=== PATIENT | female | born 1970 | race Caucasian/White ===

== ENCOUNTER 2024-08-27 15:41 | Inpatient (IN) | payer MEDICAID, SELFPAY ==
[2024-08-27 15:43] VITALS: BMI 27.8
[2024-08-27 16:15] VITALS: BP 124/76; PULSE 122; RESP 20; TEMP 39; O2SAT 96
--- NOTE | 2024-08-27 16:16 | XR_ITS ---
Examination: CT abdomen and pelvis without contrast. Coronal 3-D reconstructions. Sagittal 2-D reconstructions. Date and time of exam:06/29/2024 1621 hrs. Indications: Abdominal pain and fever beginning 4 days ago, acute diverticulitis CT abdomen pelvis 02/28/2024 CTDI: vol (mGy): 12.1 DLP: (mGycm): 735 Technique: Axial images of the abdomen have been obtained, 3 mm slice thickness Intravenous contrast material has not been administered. Low dose protocols were performed. One or more of the following dose reduction techniques were used; automated exposure control, adjustment of the mA and/or KV according to patient size, use of iterative reconstruction technique. Findings: Hepatomegaly, 23 cm diffuse fatty infiltration throughout the liver, liver is lobular in contour Distended gallbladder with gallbladder wall thickening Spleen is not enlarged No pancreatic mass Mild ascites Subcentimeter pericaval periaortic lymph nodes Perinephric stranding, no hydronephrosis 3 mm lower pole left renal calculus, 10 mm lower pole right renal calculus Diffuse thickening of the colonic wall No pericecal inflammatory change Colonic diverticulosis Suspicious for mild acute sigmoid diverticulitis No pelvic mass Contracted urinary bladder Impression: Hepatomegaly, 23 cm with diffuse fatty infiltration throughout the liver Suspicious for cirrhosis Mild ascites Bilateral nonobstructing renal calculi Hepatic colopathy Suspicious for mild acute sigmoid diverticulitis, no peridiverticular abscess
--- NOTE | 2024-08-27 16:17 | PD.EDRME ---
Rapid Medical Screening Exam RME Arrival date/time: 08/27/24 15:41 54-year-old female with history of diverticulitis presents to the emergency department complains of lower abdominal pain and concern for diverticulitis flare Chief Complaint: Abdominal Pain Time Seen by Provider: 08/27/24 16:12
--- NOTE | 2024-08-27 16:23 | PC.NURSE ---
sepsis alert called
[2024-08-27] MEDS: HYDROcodone/APAP 5/325 TABLET 1 TAB PO (16:39)
[2024-08-27 16:49] LABS: Basophils % (Auto) 0 % (0-2.5); Eosinophils % (Auto) 0 % (0-10); Hematocrit 35.8 % (36.0-46.0); Hemoglobin 12.1 g/dL (12.0-16.0); Immature Granulocytes % (Auto) 1 % (0-0); Immature Granulocytes Auto 0.15 Thou/mm3 (0.00-0.00); Lymphocytes # (Auto) 0.4 Thou/mm3 (1.0-4.8); Lymphocytes % (Auto) 3 % (10-50); Mean Corpuscular HGB Conc 33.8 g/dl (31.0-37.0); Mean Corpuscular Hemoglobin 35.5 pg (25.0-35.0); Mean Corpuscular Volume 105 fL (80-100); Monocytes # (Auto) 0.5 Thou/mm3 (0.0-0.8); Monocytes % (Auto) 4 % (0-12); Neutrophils # (Auto) 11.7 Thou/mm3 (1.8-7.7); Neutrophils % (Auto) 92 % (37-80); Nucleated Red Blood Cell % 0 /100 WBC (0); Platelet Count 84 Thou/mm3 (140-440); RDW Standard Deviation 63.1 fL (36.4-46.3); Red Blood Count 3.41 Miln/mm3 (4.00-5.20); White Blood Count 12.8 Thou/mm3 (3.6-11.0)
[2024-08-27 17:09] LABS: Collection Type, Urine Clean Catch
[2024-08-27 17:15] LABS: Alanine Aminotransferase 33 U/L (10-49); Albumin, Serum 3.9 gm/dL (3.5-5.0); Albumin/Globulin Ratio 1.2 (1.2-2.2); Alkaline Phosphatase 244 U/L (46-116); Anion Gap 12 (7-16); Aspartate Amino Transferase 121 U/L (0-34); BUN/Creatinine Ratio 13 Ratio (12-20); Bilirubin,Total 3.6 mg/dL (0.3-1.2); Blood Urea Nitrogen 15 mg/dL (9-23); Calcium 8.8 mg/dL (8.3-10.6); Calcium (Corrected) 8.9 mg/dL (8.5-10.1); Carbon Dioxide 21.2 mMol/L (20.0-31.0); Chloride 104 mMol/L (98-107); Creatinine (Component) 1.2 mg/dL (0.6-1.3); Estimated Creatinine Clearance 65.1 mL/min (>60); Globulin 3.3 gm/dL (2.3-3.5); Glucose 103 mg/dL (74-106); Lipase 39 U/L (12-53); Osmolality,Calculated 274 (275-295); Potassium 3.2 mMol/L (3.4-5.1); Procalcitonin 16.72 ng/ml (0.0-0.49); Sodium 137 mMol/L (136-145); Total Protein 7.2 gm/dL (5.7-8.2); eGFR 53 See Note
[2024-08-27 17:24] LABS: Bacteria,Urine 1+; Bilirubin,Urine 2+ (Negative); Blood,Urine Trace (Negative); Color,Urine Drk-Orange (Lt Yel-Yel); Culture Indicated,Urine Contaminated; Glucose, Urine Trace (Negative); Hyaline Casts,Urine 12 /hpf (0-1); Ketones,Urine Negative (Negative); Leukocyte Esterase,Urine Negative (Negative); Nitrite,Urine Negative (Negative); Protein,Urine 3+ (Neg - Trace); RBC,Urine 2 /hpf (0-3); Specific Gravity,Urine 1.025 (1.001-1.035); Squamous Epithelial Cell,Urine 20 /hpf (0-5); Urobilinogen,Urine 12 mg/dL (0.0-1.0); WBC,Urine 22 /hpf (0-5)
[2024-08-27 17:25] LABS: Clarity,Urine Turbid (Clear/Hazy)
[2024-08-27 18:48] VITALS: BP 122/71; PULSE 114; RESP 15; TEMP 36.9; O2SAT 95
[2024-08-27] MEDS: PIPER/TAZO INJ 3.375 GM in SODIUM CHLORIDE 0.9% (Popper) 50 ML IV (19:16)
--- NOTE | 2024-08-27 19:19 | PD.EDABDPN ---
ED Abdominal Pain RME/HPI General Chief Complaint: Abdominal Pain Stated complaint: DIVERTICULITIS, URINATING BLOOD Time seen by provider: 08/27/24 16:12 Arrival date/time: 08/27/24 15:41 RME / HPI RME / HPI narrative: 54-year-old female patient with significant history of diverticulitis, came in for evaluation regarding lower abdominal pain. Onset of symptoms earlier today's lower abdominal pain described as dull ache, severity moderate. Patient is also concerned because today when she urinates she noticed some blood streak in the urine. Denies any fever denies any vomiting denies any other complaints no medications taken prior to arrival. Patient told me that she still drink alcohol but not on a regular basis. In the triage patient was noted to be tachycardic and having fever. Sepsis alert was initiated right away. Related Data Previous Rx's ?Medication ?Instructions ?Recorded fluticasone propionate 50 2 spray intranasal QDAY allergies 04/26/24 mcg/actuation nasal #16 grams spray,suspension methylprednisolone 4 mg tablets in See Rx Instructions PO PER PKG DIR 04/26/24 a dose pack (Medrol (Thierno)) rash #21 tabs amlodipine 5 mg tablet 5 mg PO QDAY #30 tabs 05/06/24 citalopram 20 mg tablet 20 mg PO QDAY #30 tabs 05/06/24 lisinopril 20 mg tablet 20 mg PO QDAY #30 tabs 05/06/24 Allergies Allergy/AdvReac Type Severity Reaction Status Date / Time aspirin Allergy Severe Rash Verified 08/27/24 15:42 Review of Systems Review of Systems Narrative Review of Systems: Review of system reviewed and within normal limits except mentioned in HPI ED Exam Narrative Physical exam: VITAL SIGNS: Reviewed. GENERAL APPEARANCE: Alert and interactive, follows commands, no acute distress, HEAD AND FACE: Non-traumatic. ENT: PERRL, pink conjunctivitis, eyelid no trauma, Mucous membrane moist. NECK: Supple, nontender, no nuchal rigidity. CHEST: No tenderness, no crepitus, no paradoxical movement, no retractions. LUNGS: Clear, well ventilated, symmetric, no rales, no wheezing, no ronchi, no stridor, good breath sounds bilaterally. HEART: Regular rate, regular rhythm, no murmur, no gallops. ABDOMEN: Soft, positive bowel sounds, nondistended, no guarding, lower abdominal tenderness no rebound, no masses, RECTAL: Deferred. GENITAL: Deferred. NEUROLOGICAL: Gross motor function intact sensory function intact, Appropriate for age. MUSCULOSKELETAL: low back nontender, full range of motion. EXTREMITIES: Nontender, full range of motion. SKIN: Color pink, dry, no rash, no lacerations, no abrasions, no contusions. LYMPHATICS: Deferred. Course Quality Measures none Orders Category Date Time Status MRI Screening NOW Care 08/27/24 22:[address] abdomen pelvis wo con Stat Exams 08/27/24 16:16 Completed MR MRCP Stat Exams 08/27/24 Ordered US gall bladder Stat Exams 08/27/24 20:50 Completed Blood Culture (Lab) Stat Lab 08/27/24 16:40 Received CBC Stat Lab 08/27/24 16:37 Completed Comprehensive Metabolic Panel Stat Lab 08/27/24 16:37 Completed Lactic Acid [Lactate (Lactic Acid)] Stat Lab 08/27/24 16:37 Completed Lipase Stat Lab 08/27/24 16:37 Completed Procalcitonin Stat Lab 08/27/24 16:37 Completed UA, C/S IF [Urinalysis, C/S if Indicated] Stat Lab 08/27/24 17:07 Completed HYDROcodone*/APAP 5/325 [Hannibal 5/325] Med 08/27/24 16:16 Discontinued 1 tab PO X1 ONE HYDROcodone/APAP 10/325 [[place]ann[place] 10/325] Med 08/27/24 23:18 Discontinued 1 tab PO X1 ONE Ketorolac Inj [Toradol Inj] Med 08/27/24 19:17 Discontinued 30 mg IVP X1 ONE Piper/Tazo Inj [Zosyn Inj] 3.375 gm Med 08/27/24 22:50 Pending SODIUM CHLORIDE 0.9% (Popper) [Ns 0.9% (P)] 50 ml IV Q8HR Piper/Tazo Inj [Zosyn Inj] 3.375 gm Med 08/27/24 19:11 Discontinued SODIUM CHLORIDE 0.9% (Popper) [Ns 0.9% (P)] 50 ml IV X1 Piper/Tazo Inj [Zosyn Inj] 3.375 gm Med 08/28/24 04:00 Active SODIUM CHLORIDE 0.9% (Popper) [Ns 0.9% (P)] 50 ml IV X1 Potassium Chloride [K-Dur] Med 08/27/24 22:50 Discontinued 40 meq PO X1 ONE Sodium Chloride 0.9% 1000 ml [Ns] 1,000 ml Med 08/27/24 22:51 Active IV 125 mls/hr Sodium Chloride 0.9% 1000 ml [Ns] 1,000 ml Med 08/27/24 19:18 Discontinued IV 999 mls/hr Vital Signs Vital signs: Vital Signs Temperature 102.2 F H 08/27/24 16:15 Pulse Rate 122 H 08/27/24 16:15 Respiratory Rate 20 08/27/24 16:15 Blood Pressure 124/76 08/27/24 16:15 Pulse Oximetry (%) 96 08/27/24 16:15 Oxygen Delivery Method Room Air 08/27/24 16:15 Abdominal Pain MDM MDM Narrative MDM Narrative:: 54-year-old female patient with significant history of diverticulitis, came in for evaluation regarding lower abdominal pain. Onset of symptoms earlier today's lower abdominal pain described as dull ache, severity moderate. Patient is also concerned because today when she urinates she noticed some blood streak in the urine. Denies any fever denies any vomiting denies any other complaints no medications taken prior to arrival. In the triage patient was noted to be tachycardic and having fever. Sepsis alert was initiated right away. Patient's total bili today was noted to be 3.6, leukocytosis of 12.8 potassium 3.2 AST of 121, alkaline phos of 244. Pro-Zeke was also noted to be 16.7. Urinalysis no UTI. CT scan of the abdomen and pelvis showed Hepatomegaly, 23 cm diffuse fatty infiltration throughout the liver, liver is lobular in contour Distended gallbladder with gallbladder wall thickening Spleen is not enlarged No pancreatic mass Mild ascites Subcentimeter pericaval periaortic lymph nodes Perinephric stranding, no hydronephrosis 3 mm lower pole left renal calculus, 10 mm lower pole right renal calculus Diffuse thickening of the colonic wall No pericecal inflammatory change Colonic diverticulosis Suspicious for mild acute sigmoid diverticulitis No pelvic mass Contracted urinary bladder Ultrasound of the gallbladder showed Negative for cholelithiasis, negative for cholecystitis Prominent pancreatic head, clinical correlation advised, pancreas does not appear prominent on the CT examination abdomen today Moderate hepatomegaly fatty infiltration Patient received IV fluids for hydration, [place], Toradol, IV Zosyn, 3.5 g every 8 hours. Patient is pending MRCP in the morning. Care transferred to Dr Xie At 11:20 PM. For final disposition Patient data External records reviewed:: None Clinical information provided by:: patient Social determinants that could affect healthcare access:: alcohol use Patient has the following chronic illnesses:: None How is presenting disease/condition affected by chronic disease/condition?: exacerbated by Evaluation data The following diagnostics were reviewed and interpreted by me:: lab results, radiology exam(s) and EKG tracing(s) Lab and/or radiology exams considered but not ordered:: None Interpretation Summary: See results in MDM Medications / Prescriptions Medications or Prescriptions considered but not ordered:: None Medication administrations:: Medication Administration History Piperacillin Sod/Tazobactam (Sod 3.375 gm/ Sodium Chloride) 50 mls @ 100 mls/hr IV Q8HR BRIANA Stop: 09/03/24 22:49 Sodium Chloride (Ns) 1,000 mls @ 125 mls/hr IV .Q8H ONE Stop: 08/28/24 06:50 Last Admin: 08/27/24 23:16 Dose: 125 mls/hr Documented By: TYRESE Piperacillin Sod/Tazobactam (Sod 3.375 gm/ Sodium Chloride) 50 mls @ 12.5 mls/hr IV X1 ONE Stop: 08/28/24 07:59 Discontinued Medications Hydrocodone Bitart/Acetaminophen (Hydrocodone/Apap 5/325 Tablet) 1 tab PO X1 ONE Stop: 08/27/24 16:17 Last Admin: 08/27/24 16:39 Dose: 1 tab Documented By: Hydrocodone Bitart/Acetaminophen (Hydrocodone/Apap 10/325 Tab) 1 tab PO X1 ONE Stop: 08/27/24 23:19 Piperacillin Sod/Tazobactam (Sod 3.375 gm/ Sodium Chloride) 50 mls @ 100 mls/hr IV X1 ONE Stop: 08/27/24 19:40 Last Infusion: 08/27/24 20:06 Dose: Infused Documented By: Admin: 08/27/24 19:16 Dose: 100 mls/hr Documented By: TYRESE Sodium Chloride (Ns) 1,000 mls @ 999 mls/hr IV .Q1H1M ONE Stop: 08/27/24 20:18 Last Infusion: 08/27/24 20:58 Dose: Infused Documented By: Admin: 08/27/24 19:21 Dose: 999 mls/hr Documented By: TYRESE Ketorolac Tromethamine (Ketorolac Inj 30 Mg/Ml Vial) 30 mg IVP X1 ONE Stop: 08/27/24 19:18 Last Admin: 08/27/24 19:21 Dose: 30 mg Documented By: TYRESE Potassium Chloride (Potassium Chloride 20 Meq Tabcr) 40 meq PO X1 ONE Stop: 08/27/24 22:51 Last Admin: 08/27/24 23:16 Dose: 40 meq Documented By: TYRESE IV fluids, IV Zosyn, potassium replacement, Toradol, Hannibal Consultations Consultation(s) initiated? (list below): No Diagnosis Differential diagnosis abdominal pain: abdominal pain, pancreatitis and other (Acute diverticulitis,, fever, elevated total bili) Most likely diagnosis given after review of the tests above:: Acute diverticulitis, fever elevated total bili, Admission Indicated Admission indicated?: not indicated Admission Request Was there a request for admission?: No Admission Attestation Admission request attestation: Pending final disposition Disposition Plan Disposition Plan: other (specify) Discharge Plan Prescriptions/Referrals Prescriptions/Med Rec: No Action methylprednisolone [Medrol (Thierno)] 4 mg tablets,dose pack See Rx Instructions PO PER PKG DIR MDD 24 mg Qty: 21 0RF Rx Instructions: PO PER PKG DIR for 6 days fluticasone propionate 50 mcg/actuation spray,suspension 2 spray intranasal QDAY Qty: 16 1RF Rx Instructions: administer 2 sprays into each nostril lisinopril 20 mg tablet 20 mg PO QDAY MDD 20 mg Qty: 30 2RF amlodipine 5 mg tablet 5 mg PO QDAY MDD 5 mg Qty: 30 2RF citalopram 20 mg tablet 20 mg PO QDAY MDD 20 mg Qty: 30 2RF Referrals: No Primary/Family,Physician [Primary Care Provider] - In 1 week Problem List Clinical Impression: Abdominal pain, Acute diverticulitis, Total bilirubin, elevated, Fever Patient/Caregiver Discharge Instructions Print Language: Romansh
[2024-08-27] MEDS: SODIUM CHLORIDE 0.9% 1000 ML 1,000 ML 999 ML IV (19:21)
[2024-08-27] MEDS: KETOROLAC INJ 30 MG/ML VIAL IVP (19:21)
--- NOTE | 2024-08-27 20:50 | XR_ITS ---
Examination: Abdomen sonogram, Limited Date and time of exam: September 06, 2024 10:30 PM Indications: Right upper abdominal pain beginning 3 days ago Technique: Real-time buenrostro scale transabdominal sonographic images of the upper abdomen obtained. Findings: Negative for gallstones Gallbladder wall 0.2 cm Common bile duct 0.5 cm Pancreatic head 3.8 cm Liver 20.9 cm no focal liver lesions Normal hepatopedal portal venous flow Patent IVC Impression: Negative for cholelithiasis, negative for cholecystitis Prominent pancreatic head, clinical correlation advised, pancreas does not appear prominent on the CT examination abdomen today Moderate hepatomegaly fatty infiltration
[2024-08-27 22:06] VITALS: BP 117/65; PULSE 91; RESP 18; O2SAT 97
[2024-08-27 22:11] VITALS: BP 117/65; PULSE 91; RESP 18; TEMP 36.8; O2SAT 95
[2024-08-27] MEDS: SODIUM CHLORIDE 0.9% 1000 ML 1,000 ML 125 ML IV (23:16)
[2024-08-27] MEDS: POTASSIUM CHLORIDE 20 mEq TABCR 40 MEQ PO (23:16)
--- NOTE | 2024-08-27 23:16 | PD.EDADDENDU ---
Emergency Room Addendum <Trupti Johnson - Last Filed: 08/27/24 23:17> Addendum Narrative: I took over the care from Dejuan Martines NP at 11 PM on 08/27/2024, see his notes for complete H&P and ED course. <Adrien Xie MD - Last Filed: 08/28/24 04:38> Addendum Narrative: I took over the care from Dejuan Martines [employer]INE[employer] at 11 PM on 08/27/2024, see his notes for complete H&P and ED course. Patient presented with several days of abdominal pain and vomiting and decreased oral intake, no alcohol for a couple of weeks. I reviewed all diagnostic test results. Diagnoses include: Sepsis, Abdominal Pain, Diverticulitis, Elevated Bilirubin, Fever, UTI, Hypokalemia, Distended GB with wall thickening, Hepatomegaly, Alcohol Use Treatment here included: IV fluid, KCl, Zosyn, Toradol, and [place]. Some improvement noted. At 6 AM on 08/28/24, the care of the patient was transferred to Dr. SALDIVAR with MRCP pending. Ativan 2 mg IV ordered before MRCP due to severe claustrophobia with MRI in the past. Adrien Xie MD
[2024-08-27] MEDS: HYDROcodone/APAP 10/325 TAB PO (23:20)
[2024-08-28] VITALS (17 sets, daily range): BP systolic 91–146; BP diastolic 53–82; PULSE 72–102; RESP 12–94; TEMP 36–37.3; O2SAT 93–98; BMI 28.5
--- NOTE | 2024-08-28 | XR_ITS ---
MRI abdomen, without contrast. MRCP Date and time of exam: August 23, 2024 0744 hrs. Indications: Elevated total bilirubin today, prominent pancreatic head on ultrasound gallbladder study today nausea vomiting 4 days Technique: Multiple axial and coronal images of the abdomen have been obtained with the Siemens 1.5T MRI scanner. Images obtained included T1 weighted transverse images, T2-weighted transverse images, T2-weighted transverse images fat-suppressed, T2 weighted haste fat suppressed transverse images, T1 weighted images, in and out of phase images, T2-weighted coronal images, breath hold, T2 weighted haze coronal images as well as T2 weighted coronal thick slab images, MRCP. Findings: Cirrhosis, liver irregular liver contour, sagittal dimension of the liver 22 cm No gallstones Gallbladder wall does not appear thickened Common hepatic duct common bile duct 3 mm no stones No pancreatic edema or pancreatic mass Splenomegaly 15.5 cm No hydronephrosis Perinephric stranding Aorta normal size Impression: Cirrhosis, hepatomegaly Negative for cholelithiasis, negative for cholecystitis Normal common hepatic common bile duct No pancreatic edema or pancreatic mass Significant splenomegaly
[2024-08-28] MEDS: PIPER/TAZO INJ 3.375 GM in SODIUM CHLORIDE 0.9% (Popper) 50 ML IV ×3 (03:59→21:49)
[2024-08-28 04:15] LABS: Bilirubin,Direct 1.2 mg/dL (0.0-0.3); Magnesium 1.4 mg/dL (1.6-2.6)
--- NOTE | 2024-08-28 06:06 | PD.EDADDENDU ---
Emergency Room Addendum Addendum Narrative: 0600: Care assumed from Dr. Xei, the previous shift emergency physician. Past medical, surgical, social and family history reviewed. Vitals and home medications reviewed. I will assume the care of the patient at this time, pending MRCP and final disposition. Please refer to the emergency department record for history and examination from initial visit.? 54 year old female with past medical history significant for diverticulitis presents to the Emergency Department with complaint of lower abdominal pain. Associated symptoms include fever. Physical exam by me shows patient under no acute distress at this time. 1355: Discussed test HPI, PMHx, lab, radiology results and/or management with hospitalist. Will admit for further evaluation and management. Accepts patient for admission. Diagnoses: sepsis, diverticulitis, acute pylonephritis, hyperbilirubinemia. RADIOLOGY Procedure(s): MR MRCP Accession Number(s): [id number] cc: Dejuan MartinesP; Manan Quevedo MD; NO PRIMARY/FAMILY,PHYSICIAN~ MRI abdomen, without contrast. MRCP Date and time of exam: August 23, 2024 0744 hrs. Indications: Elevated total bilirubin today, prominent pancreatic head on ultrasound gallbladder study today nausea vomiting 4 days Technique: Multiple axial and coronal images of the abdomen have been obtained with the Siemens 1.5T MRI scanner. Images obtained included T1 weighted transverse images, T2-weighted transverse images, T2-weighted transverse images fat-suppressed, T2 weighted haste fat suppressed transverse images, T1 weighted images, in and out of phase images, T2-weighted coronal images, breath hold, T2 weighted haze coronal images as well as T2 weighted coronal thick slab images, MRCP. Findings: Cirrhosis, liver irregular liver contour, sagittal dimension of the liver 22 cm No gallstones Gallbladder wall does not appear thickened Common hepatic duct common bile duct 3 mm no stones No pancreatic edema or pancreatic mass Splenomegaly 15.5 cm No hydronephrosis Perinephric stranding Aorta normal size Impression: Cirrhosis, hepatomegaly Negative for cholelithiasis, negative for cholecystitis Normal common hepatic common bile duct No pancreatic edema or pancreatic mass Significant splenomegaly Dictated By: Manan Quevedo MD
[2024-08-28] MEDS: LORazepam 2 MG/ML VIAL IVP (07:20)
[2024-08-28] MEDS: RINGERS LACTATED 1000 ML 1,000 ML IV (07:26)
--- NOTE | 2024-08-28 15:36 | PD.RESHP ---
Documentation for date of: 08/28/24 HPI History of Present Illness Chief complaint: Abdominal pain, nausea/vomiting and diarrhea History of present illness: This patient is a 54-year-old female with past medical history of recurrent diverticulitis, had drainage for abscess a year ago in February 2024 and [facility], history of hypertension, liver cirrhosis due to alcohol use and anxiety presented to the ED on 08/28/2024 with chief complaint of lower quadrant abdominal pain radiating to the back and had multiple episodes of loose watery stools reported to be more than 30 associated with nausea and vomiting x 3-4 times from last 3 days. Patient reported that she follows up in our formerly [facility] with one of her resident doctor. She did endorse fever spikes from last 3 days. Of note, patient reported that she had productive cough from last 1 week. No history of recent travel or sick contacts at home. She did not receive flu vaccine in the past. She did had complained of mild frequency however did not had complaint of burning sensation or dysuria. Patient has not been able to eat because of nausea and diarrhea. Patient reported that she has been trying to quit drinking alcohol from last 3-1/2 weeks ago. Endorsed generalized weakness and fatigability. She was concerned for her high blood pressure as she is not currently taking her medication due to insurance problem. In the ED, patient was mildly hypertensive, tachycardic and febrile with temp of 102.2. Patient was saturating well on room air. She met 3 out of 4 SIRS criteria with tachycardia, fever and leukocytosis with possible source of infection diverticulitis and possible pyelonephritis. Labs showed leukocytosis, macrocytic anemia, thrombocytopenia, hypokalemia, mild CHAD with creatinine 1.2 baseline 0.6 from 03/01/2024 Lactic acid was normal. Hypomagnesemia magnesium 1.4. Total bilirubin 2.6, direct bilirubin 1.2, AST 121 and AST 33. on admission. Today labs revealed white count 5.7, hemoglobin 11.1, MCV 110, platelet count 67. INR 1.5. Electrolytes unremarkable. Kidney functions mildly improved with creatinine 1.0. Liver enzymes improved T. bili 1.3 and AST 93 with ALT 29, ALP 177. Albumin 3.5. Elevated procalcitonin 16.72.Urinalysis was turbid with bilirubin 2+, WBC 22, squamous cells, bacteria and hyaline cast. CT abdomen was significant for hepatomegaly 23 cm with diffuse fatty infiltration for the liver, cirrhosis, mild ascites, bilateral nonobstructing renal calculi 3 mm lower pole left renal calculus and 10 mm lower pole right renal calculus, diffuse thickening of colonic wall, acute sigmoid diverticulitis no peridiverticulitis abscess seen and mild ascites. Distended gallbladder with gallbladder wall thickening. Gallbladder ultrasound showed prominent pancreatic head with moderate hepatomegaly fatty infiltration. MRCP was only significant for cirrhosis and hepatomegaly negative for cholelithiasis and cholecystitis with normal common hepatic duct and CBD. PMH: As above PSH: Tubal ligation Allergies: Aspirin causes rash and difficulty breathing SH: Secondhand smoking, quit drinking alcohol recently 3 weeks ago. Used to drink 4-5 beers every day. No history of illicit drug use Home medications: Lisinopril 20 mg once daily, amlodipine 5 mg once daily, citalopram 20 mg at bedtime patient was not taking her medication due to insurance problem Patient is admitted for further workup and management of sepsis likely due to acute sigmoid diverticulitis and pyelonephritis. Review of Systems Review of Systems Systems Reviewed: All systems reviewed, normal except as documented Past Medical History Social History SMOKING STATUS: Former smoker SUBSTANCE USE: marijuana ALCOHOL: Current Exam Vital Signs Temp Pulse Resp BP Pulse Ox O2 Del Method 99.1 F 102 H 25 H 146/82 H 96 Room Air 08/28/24 15:19 08/28/24 15:19 08/28/24 15:19 08/28/24 15:19 08/28/24 15:19 08/28/24 15:19 Narrative Exam GENERAL APPEARANCE: Patient is AOx3, ill-appearing female in mild distress due to abdominal pain. Saturating well on room air HEENT: NC, AT. Dry mucous membrane. EOMI, clear conjunctiva, oropharynx clear. NECK: Supple without lymphadenopathy. No stiffness or restricted ROM. HEART: Sinus tachycardia with regular rhythm, normal S1/S2, no m/r/g LUNGS: CTAB, moving air well. No crackles or wheezes are heard. ABDOMEN: Soft, epigastric tenderness with positive punch test, nondistended with good bowel sounds heard. BACK: No CVAT, no obvious deformity. EXTREMITIES: Without cyanosis, clubbing or edema. NEUROLOGICAL: Grossly nonfocal. Alert and oriented, moving all 4 extremities. CN not formally tested but appear grossly intact. Observed to ambulate with normal gait. Skin: Warm and dry without any rash. Psych: Mildly anxious however cooperative Results: Labs 08/28/24 15:59 08/28/24 15:59 Labs: Short CBC 08/27/24 Range/Units 16:37 WBC 12.8 H (3.6-11.0) Thou/mm3 Hgb 12.1 (12.0-16.0) g/dL Hct 35.8 L (36.0-46.0) % Plt Count 84 L (140-440) Thou/mm3 BMP 08/27/24 16:37 Sodium 137 Potassium 3.2 L Chloride 104 Carbon Dioxide 21.2 BUN 15 Creatinine 1.2 Glucose 103 Calcium 8.8 Liver Function 08/27/24 08/28/24 Range/Units 16:37 03:24 Total Bilirubin 3.6 H (0.3-1.2) mg/dL Direct Bilirubin 1.2 H (0.0-0.3) mg/dL AST 121 H (0-34) U/L ALT 33 (10-49) U/L Alkaline Phosphatase 244 H (46-116) U/L Albumin 3.9 (3.5-5.0) gm/dL Urine 08/27/24 Range/Units 17:07 Urine Color Drk-[place] A (Lt Yel-Yel) Urine Clarity Turbid A (Clear/Hazy) Urine pH 6.0 (5.0-7.0) Ur Specific [place] 1.025 (1.001-1.035) Urine Protein 3+ A (Neg - Trace) Urine Glucose (UA) Trace (Negative) Quality Measures Quality Measures VTE prophylaxis (SCDs) Medications Home Medications and Allergies Allergies Allergy/AdvReac Type Severity Reaction Status Date / Time aspirin Allergy Severe Rash Verified 08/27/24 15:42 Visit Medications Acetaminophen (Acetaminophen 325 Mg Tablet) 650 mg PO Q6H PRN PRN Reason: PAIN SCALE 1-3 (mild Stop: 09/27/24 14:52 Citalopram Hydrobromide (Citalopram 20 Mg Tablet) 20 mg PO QDAY BRIANA Stop: 09/28/24 08:59 Folic Acid (Folic Acid 1 Mg Tablet) 1 mg PO QDAY BRIANA Stop: 09/28/24 08:59 Hydromorphone HCl (Hydromorphone Inj 2 Mg/Ml Vial) 0.5 mg IVP Q4H PRN PRN Reason: PAIN Stop: 09/02/24 14:52 Piperacillin Sod/Tazobactam (Sod 3.375 gm/ Sodium Chloride) 50 mls @ 12.5 mls/hr IV Q8HR [facility]; Protocol Stop: 09/03/24 22:49 Last Admin: 08/28/24 14:58 Dose: 12.5 mls/hr Lactated Ringer's (Lactated Ringers) 1,000 mls @ 75 mls/hr IV .[id number] [facility] Stop: 09/27/24 14:59 Magnesium Sulfate (Magnesium Sulfate Ivpb) 4 gm in 50 mls @ 12.5 mls/hr IV X1 ONE Stop: 08/28/24 18:56 Magnesium Sulfate/Dextrose (Magnesium Sulfate Ivpb) 1 gm in 100 mls @ 100 mls/hr IV X1 ONE Stop: 08/28/24 19:59 Ondansetron HCl (Ondansetron Inj 2 Mg/Ml Inj 2 Ml) 4 mg IV Q6H PRN; Protocol PRN Reason: NAUSEA OR VOMITING Stop: 09/27/24 14:52 Oxycodone/Acetaminophen (Oxycodone/Apap 5/325 Tablet) 1 tab PO Q6H PRN PRN Reason: PAIN SCALE 4-6 (Moderate Stop: 09/02/24 14:52 Pantoprazole Sodium (Pantoprazole Inj 40 Mg Vial) 40 mg IVP QDAY [facility] Stop: 09/27/24 14:59 Sennosides (Senna Tablet) 1 tab PO QDAY PRN; Protocol PRN Reason: constipation Stop: 09/27/24 14:52 Thiamine HCl (Thiamine 100 Mg Tablet) 100 mg PO QDAY [facility] Stop: 09/28/24 08:59 Discontinued Medications Hydrocodone Bitart/Acetaminophen (Hydrocodone/Apap 5/325 Tablet) 1 tab PO X1 ONE Stop: 08/27/24 16:17 Last Admin: 08/27/24 16:39 Dose: 1 tab Hydrocodone Bitart/Acetaminophen (Hydrocodone/Apap 10/325 Tab) 1 tab PO X1 ONE Stop: 08/27/24 23:19 Last Admin: 08/27/24 23:20 Dose: 1 tab Amoxicillin/Clavulanate Potassium (Amoxicillin/Pot Clav 875 Tablet) 1 tab PO X1 ONE Stop: 08/28/24 03:01 Last Admin: 08/28/24 07:34 Dose: Not Given Bacitracin (Bacitracin Oint 1 Gm Packet) 1 gm TOP X1 ONE Stop: 08/28/24 03:01 Last Admin: 08/28/24 07:35 Dose: Not Given Diphtheria/Tetanus/Acell Pertussis (Diphth,Pertuss(Acell),Tet Vac 0.5 Ml Syr- Adult) 0.5 ml IMi .ONCE ONE Stop: 08/28/24 03:01 Last Admin: 08/28/24 07:36 Dose: Not Given Folic Acid (Folic Acid Inj 1 Mg/0.2 Ml) 1 mg IVP X1 ONE Stop: 08/28/24 15:12 Piperacillin Sod/Tazobactam (Sod 3.375 gm/ Sodium Chloride) 50 mls @ 100 mls/hr IV X1 ONE Stop: 08/27/24 19:40 Last Infusion: 08/27/24 20:06 Dose: Infused Sodium Chloride (Ns) 1,000 mls @ 999 mls/hr IV .Q1H1M ONE Stop: 08/27/24 20:18 Last Infusion: 08/27/24 20:58 Dose: Infused Sodium Chloride (Ns) 1,000 mls @ 125 mls/hr IV .Q8H ONE Stop: 08/28/24 06:50 Last Admin: 08/27/24 23:16 Dose: 125 mls/hr Piperacillin Sod/Tazobactam (Sod 3.375 gm/ Sodium Chloride) 50 mls @ 12.5 mls/hr IV X1 ONE Stop: 08/28/24 07:59 Last Infusion: 08/28/24 09:35 Dose: Infused Lactated Ringer's (Lactated Ringers) 1,000 mls @ 1,000 mls/hr IV .Q1H ONE Stop: 08/28/24 04:13 Last Infusion: 08/28/24 09:48 Dose: Infused Potassium Chloride (Kcl Ivpb) 10 meq in 100 mls @ 100 mls/hr IV Q1H BRIANA Stop: 08/28/24 16:56 Ibuprofen (Ibuprofen Tab 400 Mg Tablet) 800 mg PO X1 ONE Stop: 08/28/24 03:01 Last Admin: 08/28/24 07:35 Dose: Not Given Ketorolac Tromethamine (Ketorolac Inj 30 Mg/Ml Vial) 30 mg IVP X1 ONE Stop: 08/27/24 19:18 Last Admin: 08/27/24 19:21 Dose: 30 mg Lorazepam (Lorazepam 2 Mg/Ml Vial) 2 mg IVP X1 ONE Stop: 08/28/24 04:09 Last Admin: 08/28/24 07:20 Dose: 2 mg Potassium Chloride (Potassium Chloride 20 Meq Tabcr) 40 meq PO X1 ONE Stop: 08/27/24 22:51 Last Admin: 08/27/24 23:16 Dose: 40 meq Thiamine HCl (Thiamine Inj 100 Mg/Ml Vial 2 Ml) 100 mg IVP X1 ONE Stop: 08/28/24 15:12 Assessment & Plan Plan This patient is a 54-year-old female with past medical history of recurrent diverticulitis, had drainage for abscess a year ago in February 2024 and [facility], history of hypertension, liver cirrhosis due to alcohol use and anxiety presented to the ED on 08/28/2024 with chief complaint of lower quadrant abdominal pain radiating to the back and had multiple episodes of loose watery stools reported to be more than 30 associated with nausea and vomiting x 3-4 times from last 3 days. Patient is admitted for further workup and management of sepsis likely due to acute sigmoid diverticulitis and pyelonephritis. #Sepsis likely secondary to acute sigmoid diverticulitis and ?pyelonephritis/UTI with hematuria #Nephrolithiasis, nonobstructing renal calculus #Leukocytosis ? Patient presented with abdominal discomfort radiating to the back with nausea vomiting and diarrhea from last 3 days. ? In the ED, patient was mildly hypertensive, tachycardic and febrile with temp of 102.2. Patient was saturating well on room air. ? She met 3 out of 4 SIRS criteria with tachycardia, fever and leukocytosis with possible source of infection diverticulitis and possible pyelonephritis. Lactic acid was unremarkable ?On admission, Labs showed leukocytosis, macrocytic anemia, thrombocytopenia, hypokalemia, mild CHAD with creatinine 1.2 baseline 0.6 from 03/01/2024. ? Procalcitonin was elevated. ? In the ED, patient received 2 L bolus of fluids, Zosyn x 1 and ibuprofen and Toradol for pain. ?Urinalysis was turbid with bilirubin 2+, WBC 22, squamous cells, bacteria and hyaline cast. ?CT abdomen was significant for hepatomegaly 23 cm with diffuse fatty infiltration for the liver, cirrhosis, mild ascites, bilateral nonobstructing renal calculi 3 mm lower pole left renal calculus and 10 mm lower pole right renal calculus, diffuse thickening of colonic wall, acute sigmoid diverticulitis no peridiverticulitis abscess seen and mild ascites. Distended gallbladder with gallbladder wall thickening. Gallbladder ultrasound showed prominent pancreatic head with moderate hepatomegaly fatty infiltration. ?MRCP was only significant for cirrhosis and hepatomegaly negative for cholelithiasis and cholecystitis with normal common hepatic duct and CBD. ?Patient was given 1 L bolus in the ED Plan: ? Started IV Zosyn 3.375 g Q8 hourly ? IV fluids at 75 cc/h and 1 L bolus ?1 ? Keep patient n.p.o. ? Follow-up on stool studies, blood cultures and urine culture ? Ordered C. difficile and contact precautions ? Daily labs ? Pain control as needed with Tylenol, oxycodone and Dilaudid ? Monitor electrolytes and replete as necessary ? Blood sugar checks Q6 hourly given patient is n.p.o. ? Ordered chest x-ray to evaluate for productive cough ? Follow-up with hepatitis panel #?Decomp Liver cirrhosis #Ascites #Alcohol use disorder ?Total bilirubin 2.6, direct bilirubin 1.2, AST 121 and AST 33. Elevated procalcitonin 16.72. ? CT abdomen was significant for hepatomegaly with diffuse fatty infiltration of liver, cirrhosis, mild ascites. MRCP was negative for cholelithiasis and cholecystitis. ?MELD NA 16 points 6% mortality ?MDF score 22, good prognosis ?Child-Jim score 9 points class B ? Albumin 3.5 Plan: ? Alcohol cessation completely ? Monitoring LFTs ? Treating underlying infection ? Monitor for signs of bleeding or bruising ? Outpatient follow-up ?Thiamine and folic acid #Hypomagnesemia #Hypokalemia ?Magnesium was 1.4 and potassium was 3.1 on admission Plan ? Electrolytes were repleted ? Keep mag above 2 and potassium above 4 #Coagulopathy #Elevated transaminases #Elevated T. bili #Thrombocytopenia ?Total bilirubin 2.6, direct bilirubin 1.2, AST 121 and AST 33. Elevated procalcitonin 16.72. ?INR 1.5 Plan: ? Monitor liver enzymes and INR ? Patient was counseled to stop drinking alcohol completely ? avoid hepatotoxic agents ? Monitor for signs of bleeding and bruising #Macrocytic anemia ? Likely related to alcohol use ?MCV was elevated with low hemoglobin Plan: ? PRBC if hemoglobin drops below 7 ? Follow-up with CBC ? Thiamine and folic acid ? Follow-up with B12, iron panel and ferritin #Prominent pancreatic head per CT imaging ? Lipase was negative Plan: ? Follow-up outpatient #Mild CHAD ? Likely prerenal -related to dehydration and sepsis ? Mildly elevated creatinine 1.2 baseline 0.9 from 2023 Plan: ?IV fluids ? Avoid nephrotoxic agents ? Renally dose medications ? Strict SAYRA's ? Follow-up with renal panel #History of hypertension ? Currently blood pressure is stable Plan ? Monitoring blood pressure and holding BP meds due to sepsis and mild CHAD ? Patient takes lisinopril 20 mg and amlodipine 5 mg ? Hold lisinopril given CHAD ? Monitor blood pressure Health maintenance Diet: N.p.o. DVT prophylaxis: SCDs GI prophylaxis: Protonix 40 mg IV daily CODE STATUS: Full code Disposition: Patient is admitted for further workup and management of sepsis likely secondary to acute sigmoid diverticulitis and pyelonephritis. -- Patient was seen and discussed with attending physician, Dr. Mainor Salcido MD, PGY 2 Attending Provider Attestation/Addendum I have discussed and was present for the essential components of the history, physical examination, diagnosis, and treatment plan with the resident. I agree with the patient's care as documented by the resident and amended herein by me. Henrique Hayward, DO. Patient seen and evaluated in the ED. 54-year-old female with a significant past medical history of multiple episodes of diverticulitis with abscess drainage, diverticulosis, anxiety, hypertension, anemia and fatty liver, presented to the ED with complaints of left lower quadrant abdominal pain, watery stools, 3-4 episodes of vomiting over the last several days prior to admission. Patient also endorsed subjective fever. In the ED, BP 146/82 mmHg, patient mildly tachycardic, mildly tachypneic, febrile with a Tmax of 102.2, patient saturating 96% on room air. Significant labs include a WBC of 12.8, hemoglobin 11.1, MCV 110, platelet count of 67, potassium 3.2, mag 1.4, procalcitonin was elevated 16.72, U tox positive for THC, liver enzymes were elevated with an AST 121, ALT 33, ALP 244 and a T. bili of 3.6. INR was 1.5. UA was positive. CT abdomen and pelvis was performed demonstrating Hepatomegaly, liver cirrhosis, mild ascites, bilateral nonobstructing renal calculi, hepatic colopathy and acute sigmoid diverticulitis however no peridiverticular abscess was noted. An MRCP was also performed out of concern for obstruction which also demonstrated cirrhosis, hepatomegaly, was negative for any cholecystitis or cholelithiasis, normal CBD, no pancreatic edema or pancreatic mass and significant splenomegaly was also noted. At this time patient admitted to telemetry floor for sepsis secondary to diverticulitis and possible UTI. Patient will be started on Zosyn, hepatitis panel ordered, IVF will be started for the next day or so. MELD score calculated 16, Madrey score 22. Will replete potassium as needed, monitor the patient's hyperbilirubinemia and anemia, ascites is minimal hence does not need a paracentesis at this time, will also follow-up with blood and urine cultures and monitor closely. Although this document has been carefully reviewed, there may still be some phonetic and other typographical errors. These errors are purely grammatical due to imperfections in the software program and should not be construed in any way to compromise the substance of the patient's medical care during this visit.
[2024-08-28] MEDS: HYDROmorphone INJ 2 MG/ML VIAL 0.5 MG IVP ×2 (16:00→20:03)
[2024-08-28] MEDS: FOLIC ACID INJ 1 MG/0.2 ML IVP (16:02)
--- NOTE | 2024-08-28 16:03 | XR_ITS ---
Examination: AP chest single view Technique one AP portable upright chest single view Exam date and time: August 28, 2024 1535 hrs. Comparison 02/28/2024 Indications: Coughing today. Findings: Normal heart size Lungs are clear. The osseous structures are intact Impression: No active disease
[2024-08-28] MEDS: THIAMINE INJ 100 MG/ML VIAL 2 ML IVP (16:05)
[2024-08-28] MEDS: PANTOPRAZOLE INJ 40 MG VIAL IVP (16:05)
[2024-08-28] MEDS: RINGERS LACTATED 1000 ML 1,000 ML 75 ML IV (16:11)
[2024-08-28 16:21] LABS: Basophils % (Auto) 0 % (0-2.5); Eosinophils % (Auto) 1 % (0-10); Hematocrit 34.2 % (36.0-46.0); Hemoglobin 11.1 g/dL (12.0-16.0); Immature Granulocytes % (Auto) 0 % (0-0); Immature Granulocytes Auto 0.02 Thou/mm3 (0.00-0.00); Lymphocytes # (Auto) 0.7 Thou/mm3 (1.0-4.8); Lymphocytes % (Auto) 12 % (10-50); Mean Corpuscular HGB Conc 32.5 g/dl (31.0-37.0); Mean Corpuscular Hemoglobin 35.6 pg (25.0-35.0); Mean Corpuscular Volume 110 fL (80-100); Monocytes # (Auto) 0.4 Thou/mm3 (0.0-0.8); Monocytes % (Auto) 6 % (0-12); Neutrophils # (Auto) 4.6 Thou/mm3 (1.8-7.7); Neutrophils % (Auto) 81 % (37-80); Nucleated Red Blood Cell % 0 /100 WBC (0); RDW Standard Deviation 67.8 fL (36.4-46.3); Red Blood Count 3.12 Miln/mm3 (4.00-5.20); White Blood Count 5.7 Thou/mm3 (3.6-11.0)
[2024-08-28 16:25] LABS: Platelet Count 67 Thou/mm3 (140-440)
[2024-08-28 16:32] LABS: INR 1.5 (0.9-1.3); Partial Thromboplastin Time 31.1 Seconds (22.0-36.0); Prothrombin Time 16.3 Seconds (9.0-12.2)
[2024-08-28 16:40] LABS: Path Review Blood Smear Sent to Pathologist; Slide Review Platelets confirmed
[2024-08-28 16:42] LABS: Alanine Aminotransferase 29 U/L (10-49); Albumin, Serum 3.5 gm/dL (3.5-5.0); Albumin/Globulin Ratio 1.2 (1.2-2.2); Alkaline Phosphatase 177 U/L (46-116); Anion Gap 10 (7-16); Aspartate Amino Transferase 93 U/L (0-34); BUN/Creatinine Ratio 20 Ratio (12-20); Bilirubin,Total 1.3 mg/dL (0.3-1.2); Blood Urea Nitrogen 20 mg/dL (9-23); Calcium 8.1 mg/dL (8.3-10.6); Calcium (Corrected) 8.5 mg/dL (8.5-10.1); Carbon Dioxide 18.9 mMol/L (20.0-31.0); Chloride 109 mMol/L (98-107); Estimated Creatinine Clearance 78.1 mL/min (>60); Globulin 2.9 gm/dL (2.3-3.5); Glucose 83 mg/dL (74-106); Osmolality,Calculated 277 (275-295); Phosphorous 2.5 mg/dL (2.4-5.1); Potassium 4.3 mMol/L (3.4-5.1); Sodium 138 mMol/L (136-145); Total Protein 6.4 gm/dL (5.7-8.2); eGFR > 60 See Note
--- NOTE | 2024-08-28 16:56 | PC.NURSE ---
PATIENT STATES TOLERATING PAIN AT 2/10 LEVEL AND DOES NOT WANT ADDITIONAL PAIN MEDICATION AT THIS TIME.
[2024-08-28] MEDS: Magnesium Sulfate 4 GM Ivpb 4 GM/50 ML BAG IV (16:57)
--- NOTE | 2024-08-28 17:55 | PC.NURSE ---
CALLED REPORT TO BALJIT SANTIAGO . ALL QUESTIONS ANSWERED.
--- NOTE | 2024-08-28 18:15 | PC.NURSE ---
Called Angella, informed her that the 4g mag is currently running until after 1999, and that there is a 1gm that is due at 1900. She said to run the 1gram once the 4gram is finished
[2024-08-28] MEDS: Magnesium Sulfate 1 gm Ivpb 1 GM/100 ML BAG IV (21:50)
[2024-08-29] VITALS (7 sets, daily range): BP systolic 127–160; BP diastolic 73–91; PULSE 68–101; RESP 14–95; TEMP 36.2–36.8; O2SAT 94–100; BMI 28.5
[2024-08-29] MEDS: HYDROmorphone INJ 2 MG/ML VIAL 0.5 MG IVP ×5 (01:02→20:30)
[2024-08-29] MEDS: PIPER/TAZO INJ 3.375 GM in SODIUM CHLORIDE 0.9% (Popper) 50 ML IV ×3 (06:22→22:01)
[2024-08-29] MEDS: RINGERS LACTATED 1000 ML 1,000 ML 75 ML IV ×2 (06:27→20:30)
[2024-08-29 06:37] LABS: Basophils % (Auto) 0 % (0-2.5); Eosinophils # (Auto) 0.1 Thou/mm3 (0.0-0.5); Eosinophils % (Auto) 2 % (0-10); Hematocrit 32.2 % (36.0-46.0); Hemoglobin 10.8 g/dL (12.0-16.0); Immature Granulocytes % (Auto) 1 % (0-0); Immature Granulocytes Auto 0.03 Thou/mm3 (0.00-0.00); Lymphocytes # (Auto) 0.9 Thou/mm3 (1.0-4.8); Lymphocytes % (Auto) 19 % (10-50); Mean Corpuscular HGB Conc 33.5 g/dl (31.0-37.0); Mean Corpuscular Hemoglobin 36.2 pg (25.0-35.0); Mean Corpuscular Volume 108 fL (80-100); Monocytes # (Auto) 0.5 Thou/mm3 (0.0-0.8); Monocytes % (Auto) 10 % (0-12); Neutrophils # (Auto) 3.3 Thou/mm3 (1.8-7.7); Neutrophils % (Auto) 68 % (37-80); Nucleated Red Blood Cell % 0 /100 WBC (0); RDW Standard Deviation 66.6 fL (36.4-46.3); Red Blood Count 2.98 Miln/mm3 (4.00-5.20); White Blood Count 4.8 Thou/mm3 (3.6-11.0)
[2024-08-29 06:45] LABS: Platelet Count 75 Thou/mm3 (140-440)
[2024-08-29 07:01] LABS: Slide Review Platelets confirmed
[2024-08-29 07:06] LABS: Alanine Aminotransferase 26 U/L (10-49); Albumin, Serum 3.6 gm/dL (3.5-5.0); Albumin/Globulin Ratio 1.3 (1.2-2.2); Alkaline Phosphatase 171 U/L (46-116); Anion Gap 10 (7-16); Aspartate Amino Transferase 72 U/L (0-34); BUN/Creatinine Ratio 26 Ratio (12-20); Bilirubin,Total 0.9 mg/dL (0.3-1.2); Blood Urea Nitrogen 21 mg/dL (9-23); Calcium 8.3 mg/dL (8.3-10.6); Calcium (Corrected) 8.6 mg/dL (8.5-10.1); Carbon Dioxide 20.4 mMol/L (20.0-31.0); Chloride 108 mMol/L (98-107); Cholesterol 130 mg/dL (132-200); Creatinine (Component) 0.8 mg/dL (0.6-1.3); Estimated Creatinine Clearance 98.8 mL/min (>60); Globulin 2.7 gm/dL (2.3-3.5); Glucose 74 mg/dL (74-106); HDL Cholesterol 13 mg/dL (40-60); LDL Cholesterol,Calculated 75 mg/dL (0-130); Magnesium 2.4 mg/dL (1.6-2.6); Osmolality,Calculated 277 (275-295); Phosphorous 2.9 mg/dL (2.4-5.1); Sodium 138 mMol/L (136-145); Thyroid Stimulating Hormone 4.61 uIU/mL (0.55-4.78); Total Protein 6.3 gm/dL (5.7-8.2); Triglycerides 208 mg/dL (30-150); eGFR > 60 See Note
[2024-08-29] MEDS: PANTOPRAZOLE INJ 40 MG VIAL IVP (08:11)
[2024-08-29] MEDS: FOLIC ACID INJ 1 MG/0.2 ML IVP (09:54)
[2024-08-29] MEDS: THIAMINE INJ 100 MG/ML VIAL 2 ML IVP (09:55)
--- NOTE | 2024-08-29 12:46 | ESPR_ITS ---
Documentation for date of: 08/29/24 Subjective Subjective Interval history: Purvi Myles is a 54-y/o female with PMHx of recurrent diverticulitis (abscess drainage at [facility] on 02/2024), alcoholic cirrhosis, hypertension, anxiety who presented on 08/27 with abdominal pain that radiates to the back with associated multiple episodes of loose watery BMs, N/V, and fevers x 3 days. Decreased p.o. intake secondary to N/V. Also endorses productive cough x 1 week with no history of recent travel or sick contacts. Admitted for management of sepsis secondary to diverticulitis versus pyelonephritis/UTI and prerenal CHAD. 08/29: Seen and examined at bedside. No acute overnight events reported. States that abdominal pain is well controlled with hydromorphone. Continues to be on IV fluids as she is NPO. Vital signs stable, and is remained afebrile. WBC downtrending (now within normal limits), hemoglobin stable. CXR obtained to evaluate cough showed no active disease. Urine and blood cultures pending and will continue on Zosyn. Exam Vital Signs Temp Pulse Resp BP Pulse Ox O2 Del Method 97.8 F 85 19 127/73 96 Room Air 08/29/24 08:00 08/29/24 08:00 08/29/24 08:00 08/29/24 08:00 08/29/24 08:00 08/29/24 08:00 Narrative Exam General: AOx3, laying comfortably in bed after receiving pain medication, on room air, able to speak full sentences HEENT: NC/AT, mucous membranes moist, bilateral sclera anicteric Cardiovascular: regular rate and rhythm, S1/S2 present, no murmurs appreciated Pulmonary: clear to auscultation bilaterally, no rales/rhonchi/wheezes Abdominal: Distended, tenderness in left lower quadrant and epigastrium, soft, no rebound/guarding Musculoskeletal: normal ROM, no peripheral edema Skin: warm and dry, intact, no rashes Neuro: CN II-XII intact, no focal deficits Objective Labs 08/29/24 06:13 08/29/24 06:13 Labs: Laboratory Results - last 24 hr 08/28/24 08/28/24 08/29/24 15:59 15:59 06:13 WBC 5.7 D 4.8 RBC 3.12 L 2.98 L Hgb 11.1 L 10.8 L Hct 34.2 L 32.2 L MCV 110 H 108 H MCH 35.6 H 36.2 H MCHC 32.5 33.5 RDW Std Deviation 67.8 H 66.6 H Plt Count 67 L D 75 L Neut % (Auto) 81 H 68 Lymph % (Auto) 12 19 [place] % (Auto) 6 10 Eos % (Auto) 1 2 Baso % (Auto) 0 0 Neut # (Auto) 4.6 3.3 Lymph # (Auto) 0.7 L 0.9 L [place] # (Auto) 0.4 0.5 Eos # (Auto) 0.0 0.1 Baso # (Auto) 0.0 0.0 Immature Gran # (Auto) 0.02 H 0.03 H Absolute Nucleated RBC 0.00 0.00 Immature Gran % 0 1 H Nucleated RBC % 0 0 Smear Path Review Cancelled Sent to Pathologist PT 16.3 H INR 1.5 H APTT 31.1 Sodium 138 138 Potassium 4.3 D 4.0 Chloride 109 H 108 H Carbon Dioxide 18.9 L 20.4 Anion Gap 10 10 BUN 20 21 Creatinine 1.0 0.8 Estim Creat Clear Calc 78.1 98.8 eGFR > 60 > 60 BUN/Creatinine Ratio 20 26 H Glucose 83 74 Calculated Osmolality 277 277 Calcium 8.1 L 8.3 Corrected Calcium 8.5 8.6 Phosphorus 2.5 2.9 Magnesium 2.4 Total Bilirubin 1.3 H D 0.9 AST 93 H 72 H ALT 29 26 Alkaline Phosphatase 177 H D 171 H Total Protein 6.4 6.3 Albumin 3.5 3.6 Globulin 2.9 2.7 Albumin/Globulin Ratio 1.2 1.3 Triglycerides 208 H Cholesterol 130 L LDL Cholesterol, Calc 75 HDL Cholesterol 13 L Cholesterol/HDL Ratio 10.0 H TSH 4.61 Misc Test Result Platelets confirmed Platelets confirmed Quality Measures Quality Measures VTE prophylaxis (SCDs) Assessment & Plan Assessment Current Active Medications: Generic Name Dose Route Start Last Admin Trade Name Freq PRN Reason Stop Dose Admin Acetaminophen 650 mg 08/28/24 14:53 Acetaminophen 325 Mg Tablet PO 09/27/24 14:52 Q6H PRN PAIN SCALE 1-3 (mild Protocol Benzonatate 200 mg 08/28/24 16:02 Benzonatate 100 Mg Capsule PO 09/27/24 16:01 Q8HR PRN COUGH Protocol Citalopram Hydrobromide 20 mg 08/29/24 09:00 Citalopram 20 Mg Tablet PO 09/28/24 08:59 QDAY BRIANA Folic Acid 1 mg 08/29/24 09:00 08/29/24 09:54 Folic Acid Inj 1 Mg/0.2 Ml IVP 09/28/24 08:59 1 mg QDAY BRIANA Administration Hydromorphone HCl 0.5 mg 08/28/24 14:53 08/29/24 10:32 Hydromorphone Inj 2 Mg/Ml Vial IVP 09/02/24 14:52 0.5 mg Q4H PRN Administration PAIN Protocol Piperacillin Sod/Tazobactam 50 mls @ 12.5 mls/hr 08/28/24 14:00 08/29/24 06:22 Sod 3.375 gm/ Sodium Chloride IV 09/03/24 22:49 12.5 mls/hr Q8HR BRIANA Administration Protocol Lactated Ringer's 1,000 mls @ 75 mls/hr 08/28/24 15:00 08/29/24 06:27 Lactated Ringers IV 09/27/24 14:59 75 mls/hr .[id number] BRIANA Administration Ondansetron HCl 4 mg 08/28/24 14:53 Ondansetron Inj 2 Mg/Ml Inj 2 Ml IV 09/27/24 14:52 Q6H PRN NAUSEA OR VOMITING Protocol Oxycodone/Acetaminophen 1 tab 08/28/24 14:53 Oxycodone/Apap 5/325 Tablet PO 09/02/24 14:52 Q6H PRN PAIN SCALE 4-6 (Moderate Pantoprazole Sodium 40 mg 08/28/24 15:00 08/29/24 08:11 Pantoprazole Inj 40 Mg Vial IVP 09/27/24 14:59 40 mg QDAY BRIANA Administration Sennosides 1 tab 08/28/24 14:53 Senna Tablet PO 09/27/24 14:52 QDAY PRN constipation Protocol Thiamine HCl 100 mg 08/29/24 09:00 08/29/24 09:55 Thiamine Inj 100 Mg/Ml Vial 2 Ml IVP 09/28/24 08:59 100 mg QDAY BRIANA Administration Plan Purvi Myles is a 54-y/o female with PMHx of recurrent diverticulitis (abscess drainage at [facility] on 02/2024), alcoholic cirrhosis, hypertension, anxiety who presented on 08/27 with abdominal pain that radiates to the back with associated multiple episodes of loose watery BMs, N/V, and fevers x 3 days. Decreased p.o. intake secondary to N/V. Also endorses productive cough x 1 week with no history of recent travel or sick contacts. Admitted for management of sepsis secondary to diverticulitis versus pyelonephritis/UTI and prerenal CHAD. #Sepsis, secondary to sigmoid diverticulitis versus ? pyelonephritis/UTI, resolved #Nephrolithiasis, nonobstructing renal calculus Abdominal pain radiating to back with loose BMs, N/V, fever. 09/24 SIRS: HR 122, RR 20, temp 102.2 ?F, leukocytosis. Source: Diverticulitis versus pyelonephritis -> sepsis. Lipase negative, lactic acid unremarkable. Procal elevated. Received 3 L IVF, zosyn x1, and toradol + ibuprofen for pain in ED. ? Zosyn 3.375 g IV q8hr (08/28-) ? IV fluids at 75 cc/h ? Keep patient n.p.o. for bowel rest ? Follow-up stool studies, hepatitis panel, C. diff PCR, fecal calprotectin, urine and blood cultures ? Pain control as needed with Tylenol, oxycodone and Dilaudid #? Decompensated liver cirrhosis #Alcohol use disorder #Ascites #Coagulopathy #Transaminitis, improving #Hyperbilirubinemia, resolved #Thrombocytopenia T bili 3.6, direct bili 1.2, indirect bili 2.4, ALP 244. CT A/P: hepatomegaly with diffuse fatty infiltration of liver, cirrhosis, mild ascites. US gallbladder and MRCP negative for cholelithiasis and cholecystitis. MELD NA: 16 points -> 6% mortality. MDF score 22, good prognosis. Child-Jim score 9 points (class B), indication for transplant evaluation. ? Avoid hepatotoxic agents ? Monitor for signs of bleeding or bruising ? Thiamine and folic acid #CHAD, likely prerenal in setting of dehydration and sepsis, resolved Mildly elevated creatinine 1.2 (baseline 0.9 from 2023) that has since resolved with Cr of 0.8 as of 08/29. ? IV fluids as above ? Avoid nephrotoxic agents, renally dose medications, strict I/O #Hypomagnesemia #Hypokalemia Mg 1.4 and K 3.1 on admission ? Keep Mg above 2 and K above 4 and replete as needed #Macrocytic anemia, likely secondary to alcohol use MCV 110, hemoglobin 11.1. ? Thiamine and folic acid as above ? Follow-up B12, iron panel, and ferritin #Prominent pancreatic head per CT imaging Lipase was negative ? Follow-up outpatient #Primary hypertension Home lisinopril 20 mg and amlodipine 5 mg. BP currently stable. ? Monitoring blood pressure and holding BP meds due to sepsis and mild CHAD Hospital management: Disposition: on IV antibiotics for diverticulitis, pending urine and blood cultures Fluids: LR at 75 cc/hr Diet: NPO for bowel rest Lines: PIV DVT prophylaxis: SCDs given coagulopathy secondary to cirrhosis GI prophylaxis: pantoprazole IV CODE STATUS: full code ----- Plan discussed with attending physician Dr. Mainor Sanderson MD PGY-1 Internal Medicine Attending Provider Attestation/Addendum I have discussed and was present for the essential components of the history, physical examination, diagnosis, and treatment plan with the resident. I agree with the patient's care as documented by the resident and amended herein by me. Henrique Hayward DO. Patient seen and evaluated this AM. No acute events overnight, vital signs stable, patient afebrile, significant labs including normal WBC, hemoglobin stable 10.8, bicarb 20, liver enzymes normal. Hepatitis panel pending, urine culture pending, blood cultures demonstrating NGTD, will continue gentle fluids and Zosyn at this time. Patient however does feel much improved, has not had a bowel movement since admission. Will replete electrolytes as necessary. Although this document has been carefully reviewed, there may still be some phonetic and other typographical errors. These errors are purely grammatical due to imperfections in the software program and should not be construed in any way to compromise the substance of the patient's medical care during this visit.
--- NOTE | 2024-08-29 13:12 | PC.SS ---
Purvi Myles is 54 year old female admitted to [facility] for sepsis/pyelonephritis/diverticulitis. SS conducted bedside contact with the patient to complete initial assessment and to discuss discharge planning.? SW used all precautionary measures to complete initial. Role and reason for the contact was explained to Purvi. Pt is alert and oriented times 4. Patient confirmed demographic information confirming information correct on facesheet. Pt lives with spouse. Patient identifies Nicholas Myles, spouse, , as her surrogate decision maker. Pt states prior to hospitalization she is able to complete all ADL?s independently. Pt does not use DME, Pt does not use O2. Pt confirmed no history of mental health or and has abstained from substance use for over 20 years. Pts PCP is [facility]. Pharmacy of choice is [facility] in [place]. Discharge options discussed and the pt will return home. Family will provide transportation upon DC. No further intervention required at this time, social security specialist would be available to address any further concerns. DC Plan: Home Contact: Nicholas Myles, spouse, Address: Confirmed on face sheet PCP: [facility]
[2024-08-29 21:52] LABS: Folate 6.32 ng/mL (>5.38); Vitamin B12 363 pg/mL (211-911)
[2024-08-29 22:08] LABS: Hepatitis A Antibody IgM Non Reactive (Non React); Hepatitis B Core Antibody IgM Non Reactive (Non React); Hepatitis B Surface Antigen Non Reactive (Non React); Hepatitis C Antibody Non Reactive (Non React)
[2024-08-30] VITALS (9 sets, daily range): BP systolic 139–167; BP diastolic 70–96; PULSE 81–98; RESP 17–92; TEMP 36.4–36.9; O2SAT 93–96; BMI 28.6
[2024-08-30] MEDS: HYDROmorphone INJ 2 MG/ML VIAL 0.5 MG IVP ×3 (00:08→08:37)
[2024-08-30] MEDS: PIPER/TAZO INJ 3.375 GM in SODIUM CHLORIDE 0.9% (Popper) 50 ML IV ×3 (05:31→21:28)
[2024-08-30 06:47] LABS: Basophils % (Auto) 0 % (0-2.5); Eosinophils # (Auto) 0.1 Thou/mm3 (0.0-0.5); Eosinophils % (Auto) 2 % (0-10); Hematocrit 32.5 % (36.0-46.0); Hemoglobin 11.1 g/dL (12.0-16.0); Immature Granulocytes % (Auto) 0 % (0-0); Immature Granulocytes Auto 0.01 Thou/mm3 (0.00-0.00); Lymphocytes % (Auto) 17 % (10-50); Mean Corpuscular HGB Conc 34.2 g/dl (31.0-37.0); Mean Corpuscular Hemoglobin 37.2 pg (25.0-35.0); Mean Corpuscular Volume 109 fL (80-100); Monocytes # (Auto) 0.6 Thou/mm3 (0.0-0.8); Monocytes % (Auto) 10 % (0-12); Neutrophils % (Auto) 71 % (37-80); Nucleated Red Blood Cell # 0.02 Thou/mm3 (0.00-0.00); Nucleated Red Blood Cell % 0 /100 WBC (0); Platelet Count 101 Thou/mm3 (140-440); RDW Standard Deviation 66.1 fL (36.4-46.3); Red Blood Count 2.98 Miln/mm3 (4.00-5.20); White Blood Count 5.7 Thou/mm3 (3.6-11.0)
[2024-08-30 07:08] LABS: Alanine Aminotransferase 25 U/L (10-49); Albumin, Serum 3.5 gm/dL (3.5-5.0); Albumin/Globulin Ratio 1.2 (1.2-2.2); Alkaline Phosphatase 172 U/L (46-116); Anion Gap 14 (7-16); Aspartate Amino Transferase 77 U/L (0-34); BUN/Creatinine Ratio 17 Ratio (12-20); Blood Urea Nitrogen 12 mg/dL (9-23); Calcium 8.8 mg/dL (8.3-10.6); Calcium (Corrected) 9.2 mg/dL (8.5-10.1); Carbon Dioxide 18.5 mMol/L (20.0-31.0); Chloride 106 mMol/L (98-107); Creatinine (Component) 0.7 mg/dL (0.6-1.3); Glucose 71 mg/dL (74-106); Magnesium 1.7 mg/dL (1.6-2.6); Osmolality,Calculated 273 (275-295); Phosphorous 2.8 mg/dL (2.4-5.1); Potassium 4.4 mMol/L (3.4-5.1); Sodium 138 mMol/L (136-145); Total Protein 6.5 gm/dL (5.7-8.2); eGFR > 60 See Note
[2024-08-30] MEDS: PANTOPRAZOLE INJ 40 MG VIAL IVP (08:37)
[2024-08-30] MEDS: THIAMINE INJ 100 MG/ML VIAL 2 ML IVP (08:37)
[2024-08-30 10:15] LABS: Base Excess, Venous -4 (-3-3); O2 Saturation, Venous 99 % (96-97); PCO2, Venous 24 mmHg (36-56); PO2, Venous 86 mmHg (15-58); pH, Venous 7.49 (7.33-7.66)
[2024-08-30] MEDS: RINGERS LACTATED 1000 ML 1,000 ML 75 ML IV (10:48)
[2024-08-30] MEDS: MAGNESIUM CITRATE 300 ML BTL PO (10:48)
[2024-08-30] MEDS: Magnesium Sulfate 4 GM Ivpb 4 GM/50 ML BAG IV (10:49)
[2024-08-30] MEDS: FOLIC ACID INJ 1 MG/0.2 ML IVP (10:49)
[2024-08-30] MEDS: oxyCODONE/APAP 5/325 TABLET 1 TAB PO ×2 (13:19→21:27)
--- NOTE | 2024-08-30 13:28 | ESPR_ITS ---
Documentation for date of: 08/30/24 Subjective Subjective Interval history: Patient was seen and examined at the bedside. Patient reported improvement in her abdominal pain. No acute overnight events were reported. Surgeon recommended to advance start the patient on clear liquid diet and evaluate her p.o. tolerance. Vitals were stable this morning. Patient was saturating well on room air. Labs revealed normocytic anemia and stable white count. Patient was found to have metabolic acidosis however VBG's were unremarkable. Magnesium was repleted x 1. Blood sugars were low therefore hypoglycemia protocol was placed. Will continue with Zosyn and follow with surgery recommendations. All labs and orders were reviewed. Exam Vital Signs Temp Pulse Resp BP Pulse Ox O2 Del Method 97.5 F 95 18 154/92 H 96 Room Air 08/30/24 12:00 08/30/24 12:00 08/30/24 12:00 08/30/24 12:00 08/30/24 12:00 08/30/24 12:00 Narrative Exam General: AOx3, laying comfortably in bed after receiving pain medication, on room air, able to speak full sentences HEENT: NC/AT, mucous membranes moist, bilateral sclera anicteric Cardiovascular: regular rate and rhythm, S1/S2 present, no murmurs appreciated Pulmonary: clear to auscultation bilaterally, no rales/rhonchi/wheezes Abdominal: Distended, tenderness in left lower quadrant and epigastrium, soft, no rebound/guarding Musculoskeletal: normal ROM, no peripheral edema Skin: warm and dry, intact, no rashes Neuro: CN II-XII intact, no focal deficits Objective Labs 08/30/24 05:49 08/30/24 05:49 Labs: Laboratory Results - last 24 hr 08/28/24 08/29/24 08/30/24 15:59 06:13 05:49 WBC 5.7 RBC 2.98 L Hgb 11.1 L Hct 32.5 L MCV 109 H MCH 37.2 H MCHC 34.2 RDW Std Deviation 66.1 H Plt Count 101 L D Neut % (Auto) 71 Lymph % (Auto) 17 [place] % (Auto) 10 Eos % (Auto) 2 Baso % (Auto) 0 Neut # (Auto) 4.0 Lymph # (Auto) 1.0 [place] # (Auto) 0.6 Eos # (Auto) 0.1 Baso # (Auto) 0.0 Immature Gran # (Auto) 0.01 H Absolute Nucleated RBC 0.02 H Immature Gran % 0 Nucleated RBC % 0 VBG pH VBG pCO2 VBG pO2 VBG O2 Sat (Sneha) VBG Base Excess Sodium 138 Potassium 4.4 Chloride 106 Carbon Dioxide 18.5 L Anion Gap 14 BUN 12 Creatinine 0.7 Estim Creat Clear Calc 113.0 eGFR > 60 BUN/Creatinine Ratio 17 Glucose 71 L Calculated Osmolality 273 L Calcium 8.8 Corrected Calcium 9.2 Phosphorus 2.8 Magnesium 1.7 Total Bilirubin 1.0 AST 77 H ALT 25 Alkaline Phosphatase 172 H Total Protein 6.5 Albumin 3.5 Globulin 3.0 Albumin/Globulin Ratio 1.2 Vitamin B12 363 Folate 6.32 Hepatitis A IgM Ab Non Reactive Hep Bs Antigen Non Reactive Hep B Core IgM Ab Non Reactive Hepatitis C Antibody Non Reactive 08/30/24 09:59 WBC RBC Hgb Hct MCV MCH MCHC RDW Std Deviation Plt Count Neut % (Auto) Lymph % (Auto) [place] % (Auto) Eos % (Auto) Baso % (Auto) Neut # (Auto) Lymph # (Auto) [place] # (Auto) Eos # (Auto) Baso # (Auto) Immature Gran # (Auto) Absolute Nucleated RBC Immature Gran % Nucleated RBC % VBG pH 7.49 VBG pCO2 24 L VBG pO2 86 H VBG O2 Sat (Sneha) 99 H VBG Base Excess -4 L Sodium Potassium Chloride Carbon Dioxide Anion Gap BUN Creatinine Estim Creat Clear Calc eGFR BUN/Creatinine Ratio Glucose Calculated Osmolality Calcium Corrected Calcium Phosphorus Magnesium Total Bilirubin AST ALT Alkaline Phosphatase Total Protein Albumin Globulin Albumin/Globulin Ratio Vitamin B12 Folate Hepatitis A IgM Ab Hep Bs Antigen Hep B Core IgM Ab Hepatitis C Antibody ABG Interpretation ABG results: 08/30/24 09:59 VBG pH 7.49 VBG pCO2 24 L VBG pO2 86 H VBG Base Excess -4 L Quality Measures Quality Measures VTE prophylaxis (SCDs) Assessment & Plan Assessment Current Active Medications: Generic Name Dose Route Start Last Admin Trade Name Freq PRN Reason Stop Dose Admin Acetaminophen 650 mg 08/28/24 14:53 Acetaminophen 325 Mg Tablet PO 09/27/24 14:52 Q6H PRN PAIN SCALE 1-3 (mild Protocol Benzonatate 200 mg 08/28/24 16:02 Benzonatate 100 Mg Capsule PO 09/27/24 16:01 Q8HR PRN COUGH Protocol Citalopram Hydrobromide 20 mg 08/29/24 09:00 Citalopram 20 Mg Tablet PO 09/28/24 08:59 QDAY BRIANA Dextrose 25 ml 08/30/24 08:54 Dextrose 50%-Water Inj 50 Ml Syringe IV 09/29/24 08:53 Q15MIN PRN BG 50-70 responsive npo pt Dextrose 50 ml 08/30/24 08:54 Dextrose 50%-Water Inj 50 Ml Syringe IV 09/29/24 08:53 Q15MIN PRN BG <50 OR BG <70 & pt unresponsive Folic Acid 1 mg 08/29/24 09:00 08/30/24 10:49 Folic Acid Inj 1 Mg/0.2 Ml IVP 09/28/24 08:59 1 mg QDAY BRIANA Administration Glucagon 1 mg 08/30/24 08:54 Glucagon Inj 1 Mg Vial IM Q15MIN PRN BG <70, and no IV access Piperacillin Sod/Tazobactam 50 mls @ 12.5 mls/hr 08/28/24 14:00 08/30/24 13:11 Sod 3.375 gm/ Sodium Chloride IV 09/03/24 22:49 12.5 mls/hr Q8HR BRIANA Administration Protocol Lactated Ringer's 1,000 mls @ 75 mls/hr 08/28/24 15:00 08/30/24 10:48 Lactated Ringers IV 09/27/24 14:59 75 mls/hr .[id number] BRIANA Administration Ondansetron HCl 4 mg 08/28/24 14:53 Ondansetron Inj 2 Mg/Ml Inj 2 Ml IV 09/27/24 14:52 Q6H PRN NAUSEA OR VOMITING Protocol Oxycodone/Acetaminophen 1 tab 08/30/24 10:29 08/30/24 13:19 Oxycodone/Apap 5/325 Tablet PO 09/02/24 14:52 1 tab Q6H PRN Administration PAIN SCALE 4-10 (Mod-Sev) Pantoprazole Sodium 40 mg 08/28/24 15:00 08/30/24 08:37 Pantoprazole Inj 40 Mg Vial IVP 09/27/24 14:59 40 mg QDAY BRIANA Administration Sennosides 1 tab 08/28/24 14:53 Senna Tablet PO 09/27/24 14:52 QDAY PRN constipation Protocol Thiamine HCl 100 mg 08/29/24 09:00 08/30/24 08:37 Thiamine Inj 100 Mg/Ml Vial 2 Ml IVP 09/28/24 08:59 100 mg QDAY BRIANA Administration Plan Purvi Myles is a 54-y/o female with PMHx of recurrent diverticulitis (abscess drainage at [facility] on 02/2024), alcoholic cirrhosis, hypertension, anxiety who presented on 08/27 with abdominal pain that radiates to the back with associated multiple episodes of loose watery BMs, N/V, and fevers x 3 days. Decreased p.o. intake secondary to N/V. Also endorses productive cough x 1 week with no history of recent travel or sick contacts. Admitted for management of sepsis secondary to diverticulitis versus pyelonephritis/UTI and prerenal CHAD. #Sepsis, secondary to sigmoid diverticulitis versus ? pyelonephritis/UTI, resolved #Nephrolithiasis, nonobstructing renal calculus Abdominal pain radiating to back with loose BMs, N/V, fever. 09/24 SIRS: HR 122, RR 20, temp 102.2 ?F, leukocytosis. Source: Diverticulitis versus pyelonephritis -> sepsis. Lipase negative, lactic acid unremarkable. Procal elevated. Received 3 L IVF, zosyn x1, and toradol + ibuprofen for pain in ED. ? Zosyn 3.375 g IV q8hr (08/28-) ? IV fluids at 75 cc/h ? Started on clear liquid diet ? Blood cultures negative x 24 hours ? Pain control as needed with Tylenol, oxycodone and Dilaudid ? Bicarb was low however VBG's came normal #?Decompensated liver cirrhosis #Alcohol use disorder #Ascites #Coagulopathy #Transaminitis, improving #Hyperbilirubinemia, resolved #Thrombocytopenia T bili 3.6, direct bili 1.2, indirect bili 2.4, ALP 244. CT A/P: hepatomegaly with diffuse fatty infiltration of liver, cirrhosis, mild ascites. US gallbladder and MRCP negative for cholelithiasis and cholecystitis. MELD NA: 16 points -> 6% mortality. MDF score 22, good prognosis. Child-Jim score 9 points (class B), indication for transplant evaluation. ? Avoid hepatotoxic agents ? Monitor for signs of bleeding or bruising ? Thiamine and folic acid #CHAD, likely prerenal in setting of dehydration and sepsis, resolved Mildly elevated creatinine 1.2 (baseline 0.9 from 2023) that has since resolved with Cr of 0.8 as of 08/29. ? IV fluids as above ? Avoid nephrotoxic agents, renally dose medications, strict I/O #Hypomagnesemia #Hypokalemia Mg 1.4 and K 3.1 on admission ? Magnesium was repleted x 1 ? Keep Mg above 2 and K above 4 and replete as needed #Macrocytic anemia, likely secondary to alcohol use MCV 110, hemoglobin 11.1. ? Thiamine and folic acid as above ? Follow-up B12, iron panel, and ferritin #Prominent pancreatic head per CT imaging Lipase was negative ? Follow-up outpatient #Primary hypertension Home lisinopril 20 mg and amlodipine 5 mg. BP currently stable. ?Resumed patient's home amlodipine 5 mg once daily Hospital management: Disposition: on IV antibiotics for diverticulitis, blood cultures negative x 24 hours Fluids: LR at 75 cc/hr Diet: Clear liquid diet Lines: PIV DVT prophylaxis: SCDs given coagulopathy secondary to cirrhosis GI prophylaxis: pantoprazole IV CODE STATUS: full code -- Patient was seen and discussed with attending physician, Dr. Mainor Salcido MD, PGY 2 Attending Provider Attestation/Addendum I have discussed and was present for the essential components of the history, physical examination, diagnosis, and treatment plan with the resident. I agree with the patient's care as documented by the resident and amended herein by me. Henrique Hayward, DO. Patient seen and evaluated this AM. No acute events overnight, vital signs stable, patient afebrile, significant labs including normal WBC, hemoglobin stable 10.8, bicarb 20, liver enzymes normal. Hepatitis panel pending, urine culture pending, blood cultures demonstrating NGTD, will continue gentle fluids and Zosyn at this time. Patient however does feel much improved, has not had a bowel movement since admission. Will replete electrolytes as necessary. Although this document has been carefully reviewed, there may still be some phonetic and other typographical errors. These errors are purely grammatical due to imperfections in the software program and should not be construed in any way to compromise the substance of the patient's medical care during this visit.
[2024-08-30] MEDS: amLODIPine BESYLATE 5 MG TABLET PO (17:08)
[2024-08-30] MEDS: Lisinopril 20 MG TABLET PO (21:27)
[2024-08-31] VITALS: BP 150/88; PULSE 86; PULSE 90; RESP 19; TEMP 36.4; O2SAT 96
[2024-08-31] MEDS: RINGERS LACTATED 1000 ML 1,000 ML 75 ML IV (00:53)
[2024-08-31 02:26] LABS: Stool for WBCs Negative (Negative)
[2024-08-31 04:00] VITALS: BP 142/80; PULSE 83; PULSE 89; RESP 10; TEMP 36.2; O2SAT 95
[2024-08-31] MEDS: oxyCODONE/APAP 5/325 TABLET 1 TAB PO ×2 (04:27→12:02)
[2024-08-31] MEDS: PIPER/TAZO INJ 3.375 GM in SODIUM CHLORIDE 0.9% (Popper) 50 ML IV (05:26)
[2024-08-31 06:00] VITALS: BMI 28.5
[2024-08-31 06:06] LABS: Basophils % (Auto) 0 % (0-2.5); Eosinophils # (Auto) 0.1 Thou/mm3 (0.0-0.5); Eosinophils % (Auto) 2 % (0-10); Hematocrit 34.5 % (36.0-46.0); Hemoglobin 11.6 g/dL (12.0-16.0); Immature Granulocytes % (Auto) 1 % (0-0); Immature Granulocytes Auto 0.04 Thou/mm3 (0.00-0.00); Lymphocytes # (Auto) 1.1 Thou/mm3 (1.0-4.8); Lymphocytes % (Auto) 17 % (10-50); Mean Corpuscular HGB Conc 33.6 g/dl (31.0-37.0); Mean Corpuscular Hemoglobin 35.3 pg (25.0-35.0); Mean Corpuscular Volume 105 fL (80-100); Monocytes # (Auto) 0.7 Thou/mm3 (0.0-0.8); Monocytes % (Auto) 10 % (0-12); Neutrophils # (Auto) 4.5 Thou/mm3 (1.8-7.7); Neutrophils % (Auto) 70 % (37-80); Nucleated Red Blood Cell % 0 /100 WBC (0); Platelet Count 85 Thou/mm3 (140-440); RDW Standard Deviation 62.7 fL (36.4-46.3); Red Blood Count 3.29 Miln/mm3 (4.00-5.20); White Blood Count 6.5 Thou/mm3 (3.6-11.0)
[2024-08-31 06:38] LABS: Alanine Aminotransferase 21 U/L (10-49); Albumin, Serum 3.5 gm/dL (3.5-5.0); Albumin/Globulin Ratio 1.3 (1.2-2.2); Alkaline Phosphatase 197 U/L (46-116); Anion Gap 9 (7-16); Aspartate Amino Transferase 64 U/L (0-34); BUN/Creatinine Ratio 13 Ratio (12-20); Bilirubin,Total 1.3 mg/dL (0.3-1.2); Blood Urea Nitrogen 8 mg/dL (9-23); Calcium 8.6 mg/dL (8.3-10.6); Carbon Dioxide 24.4 mMol/L (20.0-31.0); Chloride 105 mMol/L (98-107); Creatinine (Component) 0.6 mg/dL (0.6-1.3); Estimated Creatinine Clearance 131.7 mL/min (>60); Globulin 2.8 gm/dL (2.3-3.5); Glucose 83 mg/dL (74-106); Magnesium 2.1 mg/dL (1.6-2.6); Osmolality,Calculated 272 (275-295); Phosphorous 2.8 mg/dL (2.4-5.1); Potassium 3.7 mMol/L (3.4-5.1); Sodium 138 mMol/L (136-145); Total Protein 6.3 gm/dL (5.7-8.2); eGFR > 60 See Note
[2024-08-31 08:00] VITALS: BP 154/81; PULSE 85; RESP 19; TEMP 36.1; O2SAT 95
--- NOTE | 2024-08-31 08:40 | EKG_ITS ---
[facility] Test Date: 2024-08-31 Pat Name: NAVEEN RICKETTS Department: Room: [facility] Gender: Female Switch Inspector: [id number] : 1970 Requested By: Dorian Sanderson Order Number: [id number] Reading MD: Dorian Sanderson Measurements Intervals [place] Rate: 79 P: 27 CA: 158 QRS: 10 QRSD: 84 T: 31 QT: 392 QTc: 450 Interpretive Statements SINUS RHYTHM POSSIBLE RIGHT VENTRICULAR CONDUCTION DELAY Compared to ECG 02/28/2024 19:36:45 No significant changes /store/S0/[id number].pdf
[2024-08-31] MEDS: PANTOPRAZOLE INJ 40 MG VIAL IVP (08:45)
[2024-08-31] MEDS: THIAMINE INJ 100 MG/ML VIAL 2 ML IVP (08:46)
[2024-08-31 08:47] VITALS: BP 154/81; PULSE 85
[2024-08-31] MEDS: amLODIPine BESYLATE 5 MG TABLET PO (08:47)
[2024-08-31 08:50] VITALS: BP 154/81; PULSE 85
[2024-08-31] MEDS: Lisinopril 20 MG TABLET PO (08:50)
[2024-08-31 10:52] LABS: Clostridium Difficile PCR Negative (Negative)
[2024-08-31 12:00] VITALS: BP 148/87; PULSE 85; PULSE 86; RESP 19; TEMP 36.6; O2SAT 96
[2024-08-31] MEDS: FOLIC ACID INJ 1 MG/0.2 ML IVP (12:02)
--- NOTE | 2024-08-31 12:18 | PC.NURSE ---
Per Wasiq ok to cont with dc for pt. MD aware of pts current liquid diet and obs was not performed for this admission.
--- NOTE | 2024-08-31 13:49 | PD.RESDS ---
Planned Discharge Date 08/31/24 DS: Providers Provider Date of admission: 08/28/24 14:53 Primary care physician: Physician No Primary/Family Admitting Provider: Gerson Hayward DO Attending Provider on Admission: Gerson Hayward DO Attending Provider on DC: Gerson Hayward DO Discharging Provider: Gerson Hayward DO DS: Diagnosis Problem List Completed Was Problem List Reviewed/Reconciled?: Yes Hospital Course Hospital Course Hospital course: DC Summary: This patient is a 54-year-old female with past medical history of recurrent diverticulitis, had drainage for abscess a year ago in February 2024 and [facility], history of hypertension, liver cirrhosis due to alcohol use and anxiety presented to the ED on 08/28/2024 with chief complaint of lower quadrant abdominal pain radiating to the back and had multiple episodes of loose watery stools reported to be more than 30 associated with nausea and vomiting x 3-4 times from last 3 days. Patient was managed for further workup and management of sepsis likely due to acute sigmoid diverticulitis and pyelonephritis. Patient was managed with Zosyn and IV fluid resuscitation. Blood cultures were negative x 48 hours. Pain management was given as needed. Diet was advanced slowly which she tolerated well. CT A/P showed hepatomegaly with diffuse fatty liver progression of liver, cirrhosis and mild ascites. Ultrasound gallbladder and MRCP was negative for any acute disease and cholecystitis. MELD-Na score was 16 point MDF score was 22 points., Good prognosis. Child-Jim scale was 9.8 last week indicative of transplant evaluation. Thiamine and folic acid was given. Kidney functions improved. His electrolytes were repleted. All medications were reconciled. Patient was medically stable to be discharged today. She was prescribed Augmentin 875 mg Q8 hourly for 2 more days to complete course. Patient was discharged to home. DC instructions - Start taking amoxicillin-clavulanate 875-125 mg every 8 hours for two more days for diverticulitis - Take folic acid and thiamine every day for thirty more days, or until you follow-up with your PCP - Follow-up with PCP within 1 week of discharge - Continue taking home medications as prescribed - Return to the ED if symptoms worsen or recur #Problem list: #Sepsis likely secondary to acute sigmoid diverticulitis and ?pyelonephritis/UTI with hematuria #Nephrolithiasis, nonobstructing renal calculus #Leukocytosis #Decomp Liver cirrhosis #Ascites #Alcohol use disorder #Hypomagnesemia #Hypokalemia #Coagulopathy #Elevated transaminases #Elevated T. bili #Thrombocytopenia #CHAD, likely prerenal in setting of dehydration and sepsis, resolved #Macrocytic anemia, likely secondary to alcohol use #Prominent pancreatic head per CT imaging #Primary hypertension Patient was seen and discussed with attending physician, Dr. Mainor Salcido MD, PGY 2 Time Spent with Patient Time attestation: Total time spent providing and/or coordinating discharge services: Exam Vital Signs Temp Pulse Resp BP Pulse Ox O2 Del Method 97.8 F 86 19 148/87 H 96 Room Air 08/31/24 12:00 08/31/24 12:00 08/31/24 12:00 08/31/24 12:00 08/31/24 12:00 08/31/24 12:00 Narrative Exam General: AOx3, laying comfortably in bed after receiving pain medication, on room air, able to speak full sentences HEENT: NC/AT, mucous membranes moist, bilateral sclera anicteric Cardiovascular: regular rate and rhythm, S1/S2 present, no murmurs appreciated Pulmonary: clear to auscultation bilaterally, no rales/rhonchi/wheezes Abdominal: Distended, tenderness in left lower quadrant and epigastrium, soft, no rebound/guarding Musculoskeletal: normal ROM, no peripheral edema Skin: warm and dry, intact, no rashes Neuro: CN II-XII intact, no focal deficits Discharge Plan Plan Patient Disposition: HOME (Self Care) Care Plan Goals: - Start taking amoxicillin-clavulanate 875-125 mg every 8 hours for two more days for diverticulitis - Take hydrocodone-acetaminophen 5-325 mg orally for pain as needed, up to twice per day every 8 hours - Take folic acid and thiamine every day for thirty more days, or until you follow-up with your PCP - Follow-up with PCP within 1 week of discharge - Continue taking home medications as prescribed - Return to the ED if symptoms worsen or recur Prescriptions/Referrals Prescriptions/Med Rec: New amoxicillin-pot clavulanate 875-125 mg tablet 1 tab PO Q8H 2 Days Qty: 6 0RF folic acid 1 mg tablet 1 mg PO QDAY Qty: 30 0RF thiamine HCl (vitamin B1) 100 mg tablet 100 mg PO QDAY Qty: 30 0RF hydrocodone-acetaminophen 5-325 mg tablet 1 tab PO Q8H MDD 2 PRN (Reason: pain) Qty: 20 0RF Continued lisinopril 20 mg tablet 20 mg PO QDAY MDD 20 mg Qty: 30 2RF amlodipine 5 mg tablet 5 mg PO QDAY MDD 5 mg Qty: 30 2RF citalopram 20 mg tablet 20 mg PO QDAY MDD 20 mg Qty: 30 2RF Referrals: No Primary/Family,Physician [Primary Care Provider] - Patient/Caregiver Discharge Instructions Other Discharge Diet Instructions: hematuria Education Materials: Abdominal Pain, Treating Diarrhea, ED Diet Diarrhea Only ..., ED Hematuria Print Language: Liberian Stand Alone Forms: Josephine Award Info., Patient Portal Info Letter Discharge Order Discharge Orders: Discharge (Routine); Ordered 08/31/24 Ordered By: Dorian Sanderson Quality Discharge Quality Measures VTE prophylaxis MD Attestestation MD Attestation I have discussed and was present for the essential components of the discharge history, physical examination, diagnosis, and discharge treatment plan with the resident. I agree with the patient's discharge care as documented by the resident and amended herein by me. Henrique Hayward DO. The patient understood all discharge instructions, all questions were answered satisfactorily. The patient was instructed to return to the Emergency Department is symptoms worsened or persisted. Patient was stable, afebrile, tolerating p.o. intake, and ambulatory at time of discharge home. Patient will finish up an antibiotic course with an additional 2 days of Augmentin at home, see above. All questions answered satisfactorily. Although this document has been carefully reviewed, there may still be some phonetic and other typographical errors. These errors are purely grammatical due to imperfections in the software program and should not be construed in any way to compromise the substance of the patient's medical care during this visit.
[2024-09-09 06:56] LABS: Calprotectin, Stool* 237 mcg/g
== END 2024-08-31 14:43 | disposition home or self-care (01) | DRG 720 ==
LOC: SERX 08-28 15:18 → SERHOLD 08-28 15:20 → S2NX 08-28 18:11 → S3SX 08-30 03:51
PROVIDERS: Emergency Medicine; Nurse Practitioner Primary Care; Student in an Organized Health Care Education/Training Program; Admitting Provider Student in an Organized Health Care Education/Training Program; Emergency Provider Emergency Medicine; Visit Provider Student in an Organized Health Care Education/Training Program
DX: A41.9 Sepsis, unspecified organism (principal); I10 Essential (primary) hypertension; D69.6 Thrombocytopenia, unspecified; E87.6 Hypokalemia; N17.9 Acute kidney failure, unspecified; E83.42 Hypomagnesemia; K76.0 Fatty (change of) liver, not elsewhere classified; F10.10 Alcohol abuse, uncomplicated; K57.32 Diverticulitis of large intestine without perforation or abscess without bleeding; N20.0 Calculus of kidney; N12 Tubulo-interstitial nephritis, not specified as acute or chronic; K70.31 Alcoholic cirrhosis of liver with ascites; F40.240 Claustrophobia; E87.20 Acidosis, unspecified; F41.9 Anxiety disorder, unspecified; Z87.891 Personal history of nicotine dependence; K82.8 Other specified diseases of gallbladder; D68.9 Coagulation defect, unspecified; E86.0 Dehydration; D53.9 Nutritional anemia, unspecified; Z79.899 Other long term (current) drug therapy; Z88.6 Allergy status to analgesic agent
CPT/HCPCS: 36415; 71045; 74176; 76705; 80053; 80061; 80074; 81001; 82248; 82607; 82746; 82803; 83036; 83605; 83690; 83735; 83993; 84100; 84145; 84443; 85025; 85610; 85730; 87015; 87040; 87045; 87046; 87077; 87081; 87086; 87205; 87400; 87493; 87899; 93005; 96365; 96366; 96367; 96374; 96375; 99285; J1171; J1885; J2060; J2470; J2543; J3411; J3475; J3490; J7030; J7050; J7120; S8037; 74181; A9270

== ENCOUNTER 2024-09-14 09:16 | Outpatient (AMB) | payer MEDICAID, SELFPAY ==
[2024-09-14 09:23] VITALS: BP 121/70; PULSE 94; RESP 16; TEMP 36.7; O2SAT 96; BMI 27.2
--- NOTE | 2024-09-14 09:23 | ACNOTE_ITS ---
Vital Signs 09/14/24 09:23 Height 1.8 m Height Method Stated Weight 88.677 kg Weight Measurement Method Standing Scale BMI 27.2 BP 121/70 Blood Pressure Source Automatic Cuff Blood Pressure Location Left Upper Arm Position Sitting Respiration 16 Pulse 94 Pulse Source Monitor Temp 98.0 F Temp Source Temporal Artery Scan Pulse Oximetry (%) 96 Oxygen Delivery Method Room Air Allergies/Meds Allergies & Medications Allergies aspirin Allergy (Severe, Verified 09/14/24 09:24) Rash Medication Reconciliation hydrocodone 5 mg-acetaminophen 325 mg tablet 1 tab PO Q8H PRN pain #20 tabs 08/31/24 [Rx Confirmed 09/14/24] amlodipine 5 mg tablet 5 mg PO QDAY #30 tabs 09/14/24 [Rx] citalopram 20 mg tablet 20 mg PO QDAY #30 tabs 09/14/24 [Rx] folic acid 1 mg tablet 1 mg PO QDAY #30 tabs 09/14/24 [Rx] lisinopril 20 mg tablet 20 mg PO QDAY #30 tabs 09/14/24 [Rx] thiamine HCl (vitamin B1) 100 mg tablet 100 mg PO QDAY #30 tabs 09/14/24 [Rx] triamcinolone acetonide 0.025 % topical ointment 1 applic topical TID #80 grams 09/14/24 [Rx] MA Intake Visit Data Collection New Patient or Established: Established Patient (seen at [facility] within 3 years) Seen by Clinical Staff ONLY (RN/MA): No Pain Present Currently: No Pain scale:: 0 Pain Scale Used: Castro-Gomez/Numerical Rn Clinical Required: No PCP or OBGYN visit in last 3 months: No Hx Now: No Do You Feel Safe at Home: Yes Authorities Contacted: N/A Smoking Status Smoking Status: Former smoker Tobacco Use: Cigarette Years smoked: 30 Immunization / Flu Flu Vaccine in the Last 12 Months: No Flu Vaccine Exclusion Criteria: No Exclusion Criteria Past Medical History Past Medical History NEUROLOGIC: Negative Neurological Disorders or Seizures CARDIAC: Positive Hypertension; Negative Cardiac Disorders or Congestive Heart Failure RESPIRATORY: Negative Chronic Obstructive Pulmonary Disease (COPD) or Asthma GASTROINTESTINAL: Positive Diverticulitis GENITOURINARY: Negative Renal Disease ENDOCRINE: Negative Diabetes Mellitus Type 1 or Diabetes Mellitus Type 2 HEMATOLOGIC: Negative Sickle Cell Disease OTHER HISTORY: Negative Autoimmune Disease, Blood Transfusions, Blood Transfusion Reaction, Anesthesia Reactions, MRSA, Clostridium Difficile or Cancer Surgical History SURGICAL: Positive Tubal Ligation; Negative Cardiac Surgery, Endocrine Surgery, Ear Surgery, Abdominal Surgery, Nephrectomy, Neurologic Surgery or Mastectomy Social History SMOKING STATUS: Smoking status: Former smoker SECOND HAND EXPOSURE: second hand exposure: No ALCOHOL: Alcohol Intake: Current ALCOHOL FREQUENCY: Alcohol Intake Frequency: 3 or More Drinks per Day HOUSING: Housing: House LIVES WITH: Lives With: Spouse Patient Milton Hurt Social History Living Situation History Housing: House Housing Other:: see note Tobacco History Smoking Status: Former smoker Second Hand Smoke Exposure: No Alcohol History Alcohol Intake: Current Alcohol Intake Frequency: 3 or More Drinks per Day Substance Use History Substance Use: Marijuana former meth 20 years ago Domestic Abuse History Do You Feel Safe at Home: Yes Review of Systems Report any current symptoms Only answer those that you have currently: General Complaints fever(s): No generally not feeling well: No weakness: No Digestive System abdominal pain: No diarrhea: No nausea: No vomiting: No Past Medical History Past Medical History Have you ever been diagnosed with any of the following: Neurological Problems Seizures: No Cardiology Problems Congestive Heart Failure: No Hypertension: Yes Respiratory Problems Chronic Obstructive Pulmonary Disease (COPD): No Asthma: No Stomache/Intestinal Problems Diverticulitis: Yes Genital/Urinary Problems Renal Disease: No Endocrine Problems Diabetes Mellitus Type 1: No Diabetes Mellitus Type 2: No Blood Problems Sickle Cell Disease: No Other Problems Autoimmune Disease: No Blood Transfusions: No Blood Transfusion Reaction: No Anesthesia Reactions: No MRSA: No Clostridium Difficile: No Cancer: No History of Present Illness HPI Narrative 54-year-old female with past medical history of recurrent diverticulitis, had drainage for abscess a year ago in February 2024 and [facility], history of hypertension, liver cirrhosis due to alcohol use and anxiety who is presenting to the [facility] on 09/14 for medication refill. Patient was recently seen at [facility] on 08/28 and discharged on 08/31 for flareup of diverticulitis and superimposed pyelonephritis. Patient was discharged with oral course of antibiotics which she has completed and she states that today she feels generally well and denies having any concerning symptoms such as fever/chills, chest pain, shortness of breath, abdominal pain, nausea/vomiting/diarrhea. Patient states that she is taking care of his sick who has COPD but she has stopped drinking alcohol for several weeks now. Counseled the patient on abdominal imaging findings along with her high risk of developing cirrhosis if she continues drinking; moreover, patient is agreeable and completely understanding that she will need to stop drinking for life. Planning on having annual physical exam in 6 weeks, repeating labs and following through with preventative medicine for the patient. Patient has not had a colonoscopy, mammogram in over 2 years and likely requires a low-dose CT chest as she has [id number] history of tobacco smoking (quit 13 years ago). Patient will follow-up in 6 weeks for monitoring of right wrist eczema which will be treated with topical steroids as well. Review of Systems Constitutional Constitutional: Denies fever(s), Denies malaise and Denies weakness Gastrointestinal Gastrointestinal: Denies abdominal pain, Denies diarrhea, Denies nausea and Denies vomiting Neurologic Neurologic: Denies weakness Objective/Exam Narrative Physical exam: Physical Exam: GENERAL: Awake, Answering questions appropriately, appears stated age HEENT: NC/AT. Moist mucosa. PERRLA/EOMI. CARDIO: Heart RRR, no obvious murmurs, no JVD. PULM: No coughing or visible SOB. Lungs CTA B/L. GI: Abdomen soft, NT/ND, +BS. SKIN/MSK/EXT: 3 cm oblong eczematous rash on the right wrist associated with pruritus. No wounds/edema/amputations noted. +Pedal pulses present B/L. NEURO: Oriented x3, Moves extremities x4, no focal neurological deficits noted. 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: Status: Acute Assessment & Plan: Patient has noted history of steatohepatitis secondary to alcohol use disorder CT abdomen pelvis obtained in the hospital shows hepatomegaly at 23 cm fatty infiltration suspicious for cirrhosis with mild ascites, hepatic colopathy and confirmed with abdominal ultrasound and MRCP Patient's MELD NA score is 16, MDF score of 22 with good prognosis and Child- Jim scale is 9.8 during that admission Patient has quit drinking alcohol but she will need close GI follow-up for prevention and monitoring Plan: Referred to gastroenterology Counseled on complete alcohol cessation Follow-up labs to monitor liver function in 6 weeks (2) Essential hypertension: Status: Chronic Assessment & Plan: Patient has high blood pressure as noted from past visits Currently on amlodipine 5 mg p.o. daily and lisinopril 20 mg p.o. daily Blood pressure on 09/14/2024 is well-controlled with 121/70 read Plan: Refilled home medications Patient will follow-up in 6 weeks with annual physical and blood work Preventative medicine; colonoscopy, mammogram and likely low-dose CT for smoking history (3) Eczema: Status: Acute Qualifiers: Eczema type: intrinsic Qualified Code(s): L20.84 - Intrinsic (allergic) eczema Assessment & Plan: Patient has an eczematous lesion noted on the right wrist associated with pruritus States that in the past several years it has resurfaced and usually goes away with a dose of prednisone Patient denies having any changes to diet, use of detergents or new soaps, exposure to pets, plants or chemicals Plan: Trial dose of triamcinolone 0.025 cream, follow-up in 6 weeks (4) Depression with anxiety: Status: Acute Assessment & Plan: Patient has known history of depression associated with anxiety likely secondary to taking care of her who has COPD Patient was on citalopram 20 mg but unfortunately had to stop taking it 3 months ago due to not having refills and insurance reasons Patient states that the citalopram has worked for her very well in the past and she would like to continue and possibly increase dosage Plan: Will start the patient on citalopram 20 mg and follow-up in 6 weeks to increase dose. Orders: Orders CBC Today Free T4 (Free Thyroxine) Today Partial Thromboplastin Time Today K76.0 - Fatty (change of) liver, not elsewhere classified Comprehensive Metabolic Panel Today I10 - Essential (primary) hypertension Ambulatory Hemoglobin A1C Today I10 - Essential (primary) hypertension Thyroid Stimulating Hormone Today I10 - Essential (primary) hypertension Prothrombin Time with INR Today K76.0 - Fatty (change of) liver, not elsewhere classified Referrals Gastroenterology Office Procedures [facility] Level of Care Nursing/Assessment Patient Status: Established Patient Nursing Assessment/Reassessment: Medication Reconciliation, Update PMH in EMR and Vital Signs Coordination of Care: Complex Care and Chronic Disease 1-5, Consent,records obtained, informed consent, Education Simp Pt/Fam, Ref for ancillary service and Staff clarify orders Established Patient Charge Established Patient Point Assignment: 105 Established Patient Point Charge: Level 3 (80-115)
== END 2024-09-14 10:42 | disposition home or self-care (01) ==
LOC: HODAHC 09:16
PROVIDERS: PCP Student in an Organized Health Care Education/Training Program; Referring Provider Student in an Organized Health Care Education/Training Program; Supervising Provider Internal Medicine
DX: L20.84 Intrinsic (allergic) eczema (principal); K70.0 Alcoholic fatty liver; I10 Essential (primary) hypertension; F41.8 Other specified anxiety disorders
CPT/HCPCS: 99213; G0463

== ENCOUNTER 2025-03-15 17:11 | Emergency (ER) | payer MEDICAID, SELFPAY ==
[2025-03-15 17:29] VITALS: BP 169/90; PULSE 113; RESP 19; TEMP 36.7; O2SAT 95; BMI 26.3
--- NOTE | 2025-03-15 17:36 | EDRME_ITS ---
Rapid Medical Screening Exam RME Arrival date/time: 03/15/25 17:11 Chief Complaint: General Adult/Misc Complain Time Seen by Provider: 03/15/25 17:31 Vital signs: Vital Signs Temperature 98.1 F 03/15/25 17:29 Pulse Rate 113 H 03/15/25 17:29 Respiratory Rate 19 03/15/25 17:29 Blood Pressure 169/90 H 03/15/25 17:29 Pulse Oximetry (%) 95 03/15/25 17:29 Oxygen Delivery Method Room Air 03/15/25 17:29 RME Narrative: Redness/swelling to right groin since Friday now with redness traveling down right thigh which she noticed this morning. Denies fever. Also reports ge neralized lower abdominal pain, diarrhea since yesterday. I think it is my diverticulitis flaring.
[2025-03-15 18:04] LABS: Collection Type, Urine Clean Catch
[2025-03-15 18:09] LABS: Basophils # (Auto) 0.0 Thou/mm3 (0.0-0.2); Basophils % (Auto) 0 % (0-2.5); Eosinophils # (Auto) 0.1 Thou/mm3 (0.0-0.5); Eosinophils % (Auto) 1 % (0-10); Hematocrit 39.0 % (36.0-46.0); Hemoglobin 12.7 g/dL (12.0-16.0); Immature Granulocytes Auto 0.04 Thou/mm3 (0.00-0.00); Lymphocytes # (Auto) 0.8 Thou/mm3 (1.0-4.8); Lymphocytes % (Auto) 9 % (10-50); Mean Corpuscular HGB Conc 32.6 g/dl (31.0-37.0); Mean Corpuscular Hemoglobin 32.7 pg (25.0-35.0); Mean Corpuscular Volume 101 fL (80-100); Monocytes # (Auto) 0.7 Thou/mm3 (0.0-0.8); Monocytes % (Auto) 8 % (0-12); Neutrophils # (Auto) 7.7 Thou/mm3 (1.8-7.7); Neutrophils % (Auto) 82 % (37-80); Nucleated Red Blood Cell # 0.00 Thou/mm3 (0.00-0.00); Nucleated Red Blood Cell % 0 /100 WBC (0); Platelet Count 121 Thou/mm3 (140-440); RDW Standard Deviation 55.6 fL (36.4-46.3); Red Blood Count 3.88 Miln/mm3 (4.00-5.20); White Blood Count 9.4 Thou/mm3 (3.6-11.0)
[2025-03-15 18:20] LABS: Bilirubin,Urine Negative (Negative); Blood,Urine Negative (Negative); Clarity,Urine Clear (Clear/Hazy); Color,Urine Yellow (Lt Yel-Yel); Glucose, Urine Negative (Negative); Ketones,Urine 1+ (Negative); Leukocyte Esterase,Urine Negative (Negative); Nitrite,Urine Negative (Negative); PH,Urine 6.5 (5.0-7.0); Protein,Urine Negative (Neg - Trace); RBC,Urine 1 /hpf (0-3); Specific Gravity,Urine 1.021 (1.001-1.035); Squamous Epithelial Cell,Urine 4 /hpf (0-5); Urobilinogen,Urine Negative mg/dL (0.0-1.0); WBC,Urine 1 /hpf (0-5)
[2025-03-15 18:34] LABS: Alanine Aminotransferase 32 U/L (10-49); Albumin, Serum 4.5 gm/dL (3.5-5.0); Albumin/Globulin Ratio 1.5 (1.2-2.2); Alkaline Phosphatase 239 U/L (46-116); Amylase 22 U/L (30-118); Anion Gap 12 (7-16); Aspartate Amino Transferase 79 U/L (0-34); BUN/Creatinine Ratio 15 Ratio (12-20); Bilirubin,Total 1.9 mg/dL (0.3-1.2); Blood Urea Nitrogen 9 mg/dL (9-23); Calcium 9.2 mg/dL (8.3-10.6); Calcium (Corrected) 9.2 mg/dL (8.5-10.1); Carbon Dioxide 20.0 mMol/L (20.0-31.0); Chloride 105 mMol/L (98-107); Creatinine (Component) 0.6 mg/dL (0.6-1.3); Estimated Creatinine Clearance 126.9 mL/min (>60); Globulin 3.1 gm/dL (2.3-3.5); Glucose 104 mg/dL (74-106); Osmolality,Calculated 272 (275-295); Potassium 3.4 mMol/L (3.4-5.1); Sodium 137 mMol/L (136-145); Total Protein 7.6 gm/dL (5.7-8.2); eGFR > 60 See Note
[2025-03-15] MEDS: HYDROcodone/APAP 5/325 TABLET 1 TAB PO (18:59)
[2025-03-15 19:11] VITALS: BP 167/104; PULSE 107; RESP 18; O2SAT 96
[2025-03-15] MEDS: ACETAMINOPHEN 325 MG TABLET PO (19:38)
[2025-03-15] MEDS: DOXYCYCLINE 100 MG TABLET PO (19:39)
--- NOTE | 2025-03-15 19:41 | PD.EDSKIN ---
ED Skin Abcess FB-RME/HPI General Chief complaint: General Adult/Misc Complain Stated complaint: BOIL R) UPPER THIGH; DIVERTICULITIS FLARE UP Time Seen by Provider: 03/15/25 17:31 Arrival date/time: 03/15/25 17:11 RME / HPI RME / HPI narrative: Redness/swelling to right groin since Friday now with redness traveling down right thigh which she noticed this morning. Denies fever. Also reports generalized lower abdominal pain, diarrhea since yesterday. I think it is my diverticulitis flaring. Ms. Myles is a 54-year-old female with past medical history of recurrent diverticulitis, hypertension, liver cirrhosis secondary to alcohol use and anxiety who presented to [facility] emergency department on 03/15/2025 with a chief complaint of right thigh swelling and redness. Patient reported that she woke up yesterday with the redness and fluctuant swelling in her upper right thigh near the groin, denies any fevers chills myalgias. Complains of some lower abdominal pain, denies diarrhea constipation, does report that she feels like her diverticulitis has flared up however on physical exam low clinical suspicion of diverticulitis. Patient denies any blood in stool, vomiting blood, reports that she is not established with gastroenterology, pending referral. Reports occasional alcohol use still. Related Data Previous Rx's ?Medication ?Instructions ?Recorded hydrocodone 5 mg-acetaminophen 325 1 tab PO Q8H PRN pain #20 tabs 08/31/24 mg tablet amlodipine 5 mg tablet 5 mg PO QDAY #30 tabs 09/14/24 citalopram 20 mg tablet 20 mg PO QDAY #30 tabs 09/14/24 folic acid 1 mg tablet 1 mg PO QDAY #30 tabs 09/14/24 lisinopril 20 mg tablet 20 mg PO QDAY #30 tabs 09/14/24 thiamine HCl (vitamin B1) 100 mg 100 mg PO QDAY #30 tabs 09/14/24 tablet triamcinolone acetonide 0.025 % 1 applic topical TID #80 grams 09/14/24 topical ointment cephalexin 500 mg capsule 500 mg PO QID 7 days #28 caps 03/15/25 doxycycline hyclate 100 mg capsule 100 mg PO BID 7 days #14 caps 03/15/25 Allergies Allergy/AdvReac Type Severity Reaction Status Date / Time aspirin Allergy Severe Rash Verified 03/15/25 17:15 Review of Systems Review of Systems Systems Reviewed: All systems reviewed, normal except as documented Past Medical History Past Medical History CARDIAC: Positive Hypertension RESPIRATORY: Positive Asthma GASTROINTESTINAL: Positive Cirrhosis Surgical History SURGICAL: Positive Tubal Ligation Social History SMOKING STATUS: Never smoker SECOND HAND EXPOSURE: No SUBSTANCE USE: former substance user ED Exam Narrative Physical exam: Physical Exam General: Awake and in no acute distress. Conversational and non-toxic appearing. HEENT: Normocephalic, atraumatic, mucous membranes moist. Heart: Sinus tachycardia, no murmurs. Lungs: Clear to auscultation with no wheezing or crackles. Abdomen: Soft, distended, mild ascites, nontender, positive bowel sounds. ?No guarding or rebound tenderness. Neurologic: Alert and oriented x3, no gross neurological deficit, and patient able to move all 4 extremities. Extremities: 1+ bilateral lower extremity edema Skin: Small petechiae noted bilateral lower extremities, redness noted right upper mid thigh, fluctuant swelling near groin. Course Quality Measures none Orders Category Date Time Status Incision and Drainage Set Up X1 Care 03/15/25 18:53 Completed Amylase Stat Lab 03/15/25 17:57 Completed CBC Stat Lab 03/15/25 17:37 Completed CMP [Comprehensive Metabolic Panel] Stat Lab 03/15/25 17:57 Completed UA [Urinalysis] Stat Lab 03/15/25 17:49 Completed Acetaminophen Tab [Tylenol Tab] Med 03/15/25 19:25 Discontinued 325 mg PO X1 ONE Doxycycline [Vibramycin] Med 03/15/25 19:25 Discontinued 100 mg PO X1 ONE HYDROcodone*/APAP 5/325 [Stevenson 5/325] Med 03/15/25 18:52 Discontinued 1 tab PO X1 ONE cephALEXin [Keflex] Med 03/15/25 19:25 Discontinued 500 mg PO X1 ONE Vital Signs Vital signs: Vital Signs Temperature 98.1 F 03/15/25 17:29 Pulse Rate 113 H 03/15/25 17:29 Respiratory Rate 19 03/15/25 17:29 Blood Pressure 169/90 H 03/15/25 17:29 Pulse Oximetry (%) 95 03/15/25 17:29 Oxygen Delivery Method Room Air 03/15/25 17:29 PROCEDURES: Abscess I/D Site: lower extremity (Thigh) Side (if applicable): right Sedation/analgesia: other (Local - Lidocaine 1%) Local Anesthetic: lidocaine 1% Amount of anesthesia used (mL): 5 Technique: incised with #11 blade Amount of fluid expressed (mL): 7 Irrigation: Yes Packing used?: iodoform Complications: other (None) Skin / Abscess / Foreign Body MDM Narrative MDM Narrative:: #Right thigh abscess status post I&D 03/15 #Right thigh cellulitis #Compensated cirrhosis, thrombocytopenia hyperbilirubinemia 54-year-old female with past medical history as above presented with chief complaint of right thigh abscess and cellulitis Incision and drainage done in the emergency department at bedside, packed with iodoform dressing, dressing placed Otherwise labs within normal limits Workup: CBC remarkable for RBC 3.188, MCV 101, platelet 121 Chemistry: Remarkable for osmolality 272, bilirubin 1.9 AST 79 alk phos 239 amylase 22 Urinalysis negative for UTI Patient was given Stevenson prior to procedure, given Tylenol 325, Keflex 500 and doxycycline 100 mg. Patient to follow-up with PCP, option given to return to ED within 48 hours for wound check. Case discussed with Attending Physician Dr. Kaushal Flower MD Internal Medicine PGY-2 Disclaimer: This note was dictated by speech recognition. Minor errors in electron beam photo mask maker may be present due to voice recognition software. Patient data External records reviewed:: [facility] previous records Clinical information provided by:: patient Social determinants that could affect healthcare access:: alcohol use Patient has the following chronic illnesses:: As Above How is presenting disease/condition affected by chronic disease/condition?: uneffected by Evaluation data The following diagnostics were reviewed and interpreted by me:: lab results Lab and/or radiology exams considered but not ordered:: None Interpretation Summary: CBC remarkable for RBC 3.188, MCV 101, platelet 121 Chemistry: Remarkable for osmolality 272, bilirubin 1.9 AST 79 alk phos 239 amylase 22 Urinalysis negative for UTI Medications / Prescriptions Medications or Prescriptions considered but not ordered:: None Medication administrations:: Medication Administration History Discontinued Medications Acetaminophen (Acetaminophen 325 Mg Tablet) 325 mg PO X1 ONE Stop: 03/15/25 19:26 Last Admin: 03/15/25 19:38 Dose: 325 mg Documented By: MICKEY Hydrocodone Bitart/Acetaminophen (Hydrocodone/Apap 5/325 Tablet) 1 tab PO X1 ONE Stop: 03/15/25 18:53 Last Admin: 03/15/25 18:59 Dose: 1 tab Documented By: BEATA Cephalexin HCl (Cephalexin 250 Mg Capsule) 500 mg PO X1 ONE Stop: 03/15/25 19:26 Last Admin: 03/15/25 19:39 Dose: 500 mg Documented By: MICKEY Doxycycline Hyclate (Doxycycline 100 Mg Tablet) 100 mg PO X1 ONE Stop: 03/15/25 19:26 Last Admin: 03/15/25 19:39 Dose: 100 mg Documented By: MICKEY As above Consultations Consultation(s) initiated? (list below): No Diagnosis Skin/Abscess Differential Diagnosis: abscess of skin or subcutaneous tissue and cellulitis Most likely diagnosis given after review of the tests above:: Abscess and cellulitis Admission Indicated Admission indicated?: not indicated Admission Request Was there a request for admission?: No Disposition Plan Disposition Plan: Discharge Discharge Attestation Discharge Attestation: The patient and all family members were given an opportunity to ask questions and understood the discharge instructions. Discharge instructions specifically effects, indications for sooner follow up or return to the emergency department, and the expected course of current diagnosis. Patient condition: Stable Discharge Plan Plan Patient Disposition: HOME (Self Care) Patient condition on transfer: Stable Prescriptions/Referrals Prescriptions/Med Rec: New cephalexin 500 mg capsule 500 mg PO QID 7 Days Qty: 28 0RF doxycycline hyclate 100 mg capsule 100 mg PO BID 7 Days Qty: 14 0RF No Action lisinopril 20 mg tablet 20 mg PO QDAY MDD 20 mg Qty: 30 3RF citalopram 20 mg tablet 20 mg PO QDAY MDD 20 mg Qty: 30 3RF amlodipine 5 mg tablet 5 mg PO QDAY MDD 5 mg Qty: 30 3RF folic acid 1 mg tablet 1 mg PO QDAY Qty: 30 3RF thiamine HCl (vitamin B1) 100 mg tablet 100 mg PO QDAY Qty: 30 3RF triamcinolone acetonide 0.025 % ointment 1 applic topical TID Qty: 80 0RF hydrocodone-acetaminophen 5-325 mg tablet 1 tab PO Q8H MDD 2 PRN (Reason: pain) Qty: 20 0RF Referrals: No Primary/Family,Physician [Primary Care Provider] - In 1 week Tory Flower MD [Resident, Internal Medicine] - In 1 week Problem List Clinical Impression: Abscess of right thigh, Cellulitis Patient/Caregiver Discharge Instructions Discharge Activity: activity as tolerated Education Materials: ED Abscess, Incision And Drainage Additional Instructions: - You were seen in the emergency department today for right thigh abscess with cellulitis, your abscess was drained and packed in the emergency department, please return to the ED within 48 hours for a wound check or follow-up with your primary care physician. Keep the area clean and dry. - We have prescribed you 2 antibiotics cephalexin 500 mg 4 times a day for a week and doxycycline 100 mg twice a day for a week as well, please complete your antibiotic treatment as prescribed. - Follow-up with your primary care physician for cirrhosis/transaminitis/elevated bilirubin follow-up - Follow-up with your primary care physician within 1 week - Return to emergency department if your symptoms worsen. Print Language: Turkish Stand Alone Forms: Josephine Award Info., Work/School Release, Patient Portal Info Letter
--- NOTE | 2025-03-15 20:02 | PC.NURSE ---
pain 6/10 pt was dc
--- NOTE | 2025-03-15 20:09 | PD.RESPROC ---
PROCEDURES: Procedure Date / Time 03/15/252008 Abscess I/D Indication(s): Right thigh abscess. Incision and drainage performed at bedside, consent obtained from patient, risks and benefits explained. Patient's leg externally rotated and flexed, clear margins of the abscess demarcated, local anesthesia given with 1% lidocaine, around 5 cc Patient made with 11 blade, serosanguineous drainage noted, Kellys forceps used to break the cyst pockets, around 5 to 7 cc serosanguineous drainage noted. Irrigated with normal saline, postdrainage abscess was packed. Pressure held control bleeding EBL 5 cc. Clean gauze placed, microfoam tape applied. Patient did receive hydrocodone?acetaminophen 5/325 prior to procedure Patient was monitored postprocedure, stable for discharge Procedure performed under supervision of ED physician Dr. Kaushal Flower PGY-2 Internal Medicine Informed consent obtained: from patient Time out done, and the following verified: correct patient, side and site, procedure, patient position and implants and/or equipment Site: lower extremity (Thigh) Side (if applicable): right Sedation/analgesia: none Anesthetic used: lidocaine 1% Technique: incised with #11 blade Amount of fluid (mL): 7 Irrigation: Yes Packing used?: iodoform EBL(ml): 5 Complications: other (None)
== END 2025-03-15 19:40 | disposition home or self-care (01) ==
PROVIDERS: Physician Assistant; Emergency Provider Emergency Medicine
DX: L02.415 Cutaneous abscess of right lower limb (principal)
CPT/HCPCS: 10060; 36415; 80053; 81001; 82150; 82248; 85025; 85610; 85730; 99284; A9270

== ENCOUNTER 2025-03-17 14:57 | Emergency (ER) | payer MEDICAID, SELFPAY ==
[2025-03-17 14:58] VITALS: BMI 26.0
[2025-03-17 15:23] VITALS: BP 154/88; PULSE 92; RESP 18; TEMP 37; O2SAT 95; BMI 26.6
--- NOTE | 2025-03-17 15:51 | PD.EDWOUND ---
ED Wound/Laceration-RME/HPI General Chief Complaint: Wound/Laceration Stated Complaint: RIGHT THIGH BOIL, NEED WOUND RECHECK Time Seen by Provider: 03/17/25 14:59 Arrival date/time: 03/17/25 14:57 RME / HPI RME / HPI narrative: 54-year-old female patient came in for evaluation regarding wound check. Patient had I&D for the abscess on the right medial thigh, that was done 2 days ago, came in for wound check. Patient currently taking Bactrim and Keflex. Patient denies any fever denies any pain and told me that the swelling is less as 2 days ago. Patient is ambulatory. Related Data Previous Rx's ?Medication ?Instructions ?Recorded hydrocodone 5 mg-acetaminophen 325 1 tab PO Q8H PRN pain #20 tabs 08/31/24 mg tablet amlodipine 5 mg tablet 5 mg PO QDAY #30 tabs 09/14/24 citalopram 20 mg tablet 20 mg PO QDAY #30 tabs 09/14/24 folic acid 1 mg tablet 1 mg PO QDAY #30 tabs 09/14/24 lisinopril 20 mg tablet 20 mg PO QDAY #30 tabs 09/14/24 thiamine HCl (vitamin B1) 100 mg 100 mg PO QDAY #30 tabs 09/14/24 tablet triamcinolone acetonide 0.025 % 1 applic topical TID #80 grams 09/14/24 topical ointment cephalexin 500 mg capsule 500 mg PO QID 7 days #28 caps 03/15/25 doxycycline hyclate 100 mg capsule 100 mg PO BID 7 days #14 caps 03/15/25 Allergies Allergy/AdvReac Type Severity Reaction Status Date / Time aspirin Allergy Severe Rash Verified 03/17/25 14:58 Review of Systems Review of Systems Narrative Review of Systems: Review of system reviewed and within normal limits except mentioned in HPI ED Exam Narrative Physical exam: VITAL SIGNS: Reviewed. GENERAL APPEARANCE: Alert and interactive, follows commands, no acute distress, HEAD AND FACE: Non-traumatic. ENT: PERRL, pink conjunctivitis, eyelid no trauma, Mucous membrane moist. NECK: Supple, nontender, no nuchal rigidity. RECTAL: Deferred. GENITAL: Deferred. NEUROLOGICAL: Gross motor function intact sensory function intact, Appropriate for age. MUSCULOSKELETAL: low back nontender, full range of motion. EXTREMITIES: Status post an I&D, right medial thigh, proximal, no drainage noted, full range of motion. Distal neurovascular status intact. SKIN: Color pink, dry, no rash, no lacerations, no abrasions, no contusions. LYMPHATICS: Deferred. Course Quality Measures none Vital Signs Vital signs: Vital Signs Temperature 98.6 F 03/17/25 15:23 Pulse Rate 92 03/17/25 15:23 Respiratory Rate 18 03/17/25 15:23 Blood Pressure 154/88 H 03/17/25 15:23 Pulse Oximetry (%) 95 03/17/25 15:23 Oxygen Delivery Method Room Air 03/17/25 15:23 Wound / Laceration MDM Narrative MDM Narrative:: 54-year-old female patient came in for evaluation regarding wound check. Patient had I&D for the abscess on the right medial thigh, that was done 2 days ago, came in for wound check. Patient currently taking Bactrim and Keflex. Patient denies any fever denies any pain and told me that the swelling is less as 2 days ago. Patient is ambulatory. Dressing removed including packing. I did not notice any drainage. Swelling is almost gone according to the patient. No redness noted.. Stable for discharge home Patient data External records reviewed:: None Clinical information provided by:: patient Social determinants that could affect healthcare access:: none Patient has the following chronic illnesses:: Hypertension How is presenting disease/condition affected by chronic disease/condition?: uneffected by Evaluation data The following diagnostics were reviewed and interpreted by me:: other (specify) (none) Lab and/or radiology exams considered but not ordered:: none Interpretation Summary: none Medications / Prescriptions Medications or Prescriptions considered but not ordered:: None Medication administrations:: None Consultations Consultation(s) initiated? (list below): No Diagnosis Wound Differential Diagnosis: abscess and other (Wound check) Most likely diagnosis given after review of the tests above:: Wound check status post I and D Admission Indicated Admission indicated?: not indicated Admission Request Was there a request for admission?: No Disposition Plan Disposition Plan: Discharge Discharge Attestation Discharge Attestation: The patient was given an opportunity to ask questions and understood the discharge instructions. Discharge instructions specifically effects, indications for sooner follow up or return to the emergency department, and the expected course of current diagnosis. Patient condition: Stable Discharge Plan Plan Patient Disposition: HOME (Self Care) Discharge Disposition comment: Stable Prescriptions/Referrals Prescriptions/Med Rec: No Action lisinopril 20 mg tablet 20 mg PO QDAY MDD 20 mg Qty: 30 3RF citalopram 20 mg tablet 20 mg PO QDAY MDD 20 mg Qty: 30 3RF amlodipine 5 mg tablet 5 mg PO QDAY MDD 5 mg Qty: 30 3RF folic acid 1 mg tablet 1 mg PO QDAY Qty: 30 3RF thiamine HCl (vitamin B1) 100 mg tablet 100 mg PO QDAY Qty: 30 3RF triamcinolone acetonide 0.025 % ointment 1 applic topical TID Qty: 80 0RF cephalexin 500 mg capsule 500 mg PO QID 7 Days Qty: 28 0RF doxycycline hyclate 100 mg capsule 100 mg PO BID 7 Days Qty: 14 0RF hydrocodone-acetaminophen 5-325 mg tablet 1 tab PO Q8H MDD 2 PRN (Reason: pain) Qty: 20 0RF Problem List Clinical Impression: Wound check, abscess Patient/Caregiver Discharge Instructions Discharge Activity: activity as tolerated Education Materials: ED Wound Care Additional Instructions: Thank you for the opportunity for serving you today. You are stable for discharged . You are advised to: Follow-up with your PCP in 1 to 2 days Return to ED for worsening of symptoms Increase oral fluids Take medication as prescribed last visit, your Keflex and Bactrim, continue daily dressing Print Language: Sami Stand Alone Forms: Josephine Award Info., Patient Portal Info Letter PA/TEOFILO Supervising Physician RADHA/TEOFILO Supervising Physician: MD Inga
== END 2025-03-17 17:15 | disposition home or self-care (01) ==
LOC: SERX 15:57
PROVIDERS: Emergency Provider Emergency Medicine
DX: Z48.817 Encounter for surgical aftercare following surgery on the skin and subcutaneous tissue (principal); L02.415 Cutaneous abscess of right lower limb; Z98.890 Other specified postprocedural states
CPT/HCPCS: 99281